=== PATIENT | female | born 1970 | race African-American/Black ===

== ENCOUNTER 2019-06-16 13:15 | Inpatient (IN) | payer MEDICARE, MEDICAID ==
[~2019-06-16] VITALS: Ht 162.6 cm; Wt 73.5 kg
[~2019-06-16 13:15] MED LIST: ALPR2TAB2 PO; AMLO5TAB4 PO; DOCU250C69 PO; INSLAN SQ; LOSA50TA41 PO; Metoprolol Tartrate PO; SUCR1ORA PO
[2019-06-16] MEDS ORDERED: SODIUM CHLORIDE 0.9% 1,000 ML IV ONE (13:39)
[2019-06-16] MEDS ORDERED: ONDANSETRON HCL 4MG/2ML INJ IV STA (13:39)
[2019-06-16] MEDS ORDERED: MORPHINE SULFATE 4 MG/ML CPJ (NOT FOR IM USE) IV STA (13:39)
[2019-06-16] MEDS ORDERED: HALOPERIDOL LACTATE 5MG/ML VIAL IM ONE (13:45)
[2019-06-16 14:47] LABS: BASOPHILS % 0.9 % (0.0-2.0); LYMPHOCYTES % 12.3 % (20.0-50.0); MEAN CORPUSCULAR HEMOGLOBIN 19.1 pg (28.0-32.0); MEAN CORPUSCULAR VOLUME 62.8 fL (81.0-99.0); MEAN PLATELET VOLUME 8.9 fl (7.4-10.4); NEUTROPHILS % 81.8 % (40.0-76.0); PLATELET 334 x1000/uL (130-400)
[2019-06-16 14:51] LABS: HEMOGLOBIN. 6.7 g/dL (12.0-16.0)
[2019-06-16 14:52] LABS: CHLORIDE 108 mEq/L (98-107)
[2019-06-16 14:53] LABS: PROTHROMBIN TIME 9.8 sec (9.6-11.0)
[2019-06-16 15:03] LABS: ETHANOL BLOOD < 10 mg/dL
[2019-06-16 15:10] LABS: HCG SCREEN NEGATIVE
[2019-06-16 15:14] LABS: PLATELET ESTIMATE NORMAL
[2019-06-16] MEDS ORDERED: METOCLOPRAMIDE HCL 10MG/2ML VIAL ONE (16:01)
[2019-06-16 16:16] LABS: CLARITY URINE CLEAR (CLEAR); COLOR URINE YELLOW (YELLOW); KETONES URINE NEGATIVE (NEGATIVE); LEUKOCYTE ESTERASE URINE NEGATIVE (NEGATIVE); NITRITE URINE NEGATIVE (NEGATIVE); OCCULT BLOOD URINE TRACE (NEGATIVE); PROTEIN URINE 3+ (NEGATIVE); SPECIFIC GRAVITY URINE 1.012 (1.005-1.030); UROBILINOGEN URINE 0.2 E.U./dL (0.2-1.0)
[2019-06-16] MEDS ORDERED: GUAIFENESIN 200MG/10ML SUGAR FREE UDC PO PRN (17:15)
[2019-06-16] MEDS ORDERED: DIPHENHYDRAMINE 50MG/ML VIAL IV PRN (17:15)
[2019-06-16] MEDS ORDERED: ONDANSETRON HCL 4MG/2ML INJ IV PRN (17:15)
[2019-06-16] MEDS ORDERED: DOCUSATE SODIUM 100MG CAPSULE PO PRN (17:15)
[2019-06-16] MEDS ORDERED: IPRATROPIUM/ALBUTEROL 0.5-3(2.5)MG/3ML NEB INH PRN (17:15)
[2019-06-16] MEDS ORDERED: ACETAMINOPHEN 325MG TABLET PO PRN (17:15)
[2019-06-16] MEDS ORDERED: MORPHINE SULFATE 4 MG/ML CPJ (NOT FOR IM USE) IV ONE (17:30)
[2019-06-16] MEDS ORDERED: ONDANSETRON HCL 4MG/2ML INJ IV ONE (17:30)
[2019-06-16 17:45] LABS: PHOSPHORUS 2.7 mg/dL (2.5-4.9)
[2019-06-16] MEDS ORDERED: IOHEXOL-300 100 ML BOTTLE ONE (19:08)
[2019-06-16] MEDS ORDERED: HYDRALAZINE 20MG/ML VIAL IV PRN (21:15)
[2019-06-16] MEDS ORDERED: HYDRALAZINE 10 MG in SODIUM CHLORIDE 0.9% 49.5 ML IV PRN (21:30)
[2019-06-16 22:15] VITALS: BP 177/93
[2019-06-16] MEDS: MORPHINE SULFATE 2 MG/ML CPJ (NOT FOR IM USE) IV PRN (22:35)
[2019-06-16] MEDS: SODIUM CHLORIDE 0.9% 1,000 ML IV SCH (22:39)
[2019-06-17] VITALS (7 sets, daily range): BP systolic 146–181; BP diastolic 76–100
[2019-06-17 00:19] LABS: CREATINE KINASE MB FRACTION 1.3 ng/mL (0.5-3.6)
[2019-06-17 04:30] LABS: BASOPHILS % 0.4 % (0.0-2.0); EOSINOPHILS % 0.3 % (0.0-5.0); HEMATOCRIT. 22.8 % (36.0-48.0); HEMOGLOBIN. 7.2 g/dL (12.0-16.0); MEAN CORPUSCULAR HEMOGLOBIN 20.2 pg (28.0-32.0); MEAN CORPUSCULAR VOLUME 64.3 fL (81.0-99.0); MEAN PLATELET VOLUME 8.5 fl (7.4-10.4); MONOCYTES % 6.4 % (2.0-8.0); NEUTROPHILS % 81.9 % (40.0-76.0); PLATELET 289 x1000/uL (130-400); RED BLOOD CELL COUNT 3.55 mill/uL (4.2-5.4)
[2019-06-17 04:43] LABS: CHLORIDE 110 mEq/L (98-107)
[2019-06-17] MEDS: MORPHINE SULFATE 2 MG/ML CPJ (NOT FOR IM USE) IV PRN ×3 (04:49→17:22)
[2019-06-17 04:50] LABS: LDL CHOLESTEROL 83 mg/dL (5-100)
[2019-06-17 04:52] LABS: CREATINE KINASE 82 IU/L (26-192); HDL CHOLESTEROL 40 mg/dL (40-59)
[2019-06-17 04:54] LABS: CREATINE KINASE MB FRACTION < 1.0 ng/mL (0.5-3.6)
[2019-06-17] MEDS: BLOOD SUGAR DIAGNOSTIC STRIP TEST SCH ×3 (06:21→17:48)
[2019-06-17] MEDS: SUCRALFATE 1 G/10 ML UDC PO SCH ×3 (06:29→18:18)
[2019-06-17] MEDS: METOPROLOL TARTRATE 25MG TABLET PO SCH ×2 (06:29→16:05)
[2019-06-17] MEDS: DEXTROSE 50% WATER 50ML SYRINGE IV PRN ×2 (06:35→12:10)
[2019-06-17] MEDS ORDERED: SUCRALFATE 1 GM PO SCH (07:20)
[2019-06-17] MEDS: INSULIN LISPRO 100 UNITS/ML SUBCUT SCH ×3 (07:37→18:25)
[2019-06-17] MEDS ORDERED: MEDICATION NOT ON FORMULARY EA (Docusate Sodium 250 MG) PO SCH (09:00)
[2019-06-17] MEDS ORDERED: LOSARTAN POTASSIUM 50 MG TABLET PO SCH (09:00)
[2019-06-17] MEDS ORDERED: INSULIN GLARGINE UD 100 UNITS/ML SYR SUBCUT SCH (09:00)
[2019-06-17] MEDS ORDERED: MEDICATION NOT ON FORMULARY EA (Amlodipine Besylate (Norvasc) 5 MG) PO SCH (09:00)
[2019-06-17] MEDS ORDERED: MEDICATION NOT ON FORMULARY EA (Alprazolam (Xanax) 2 MG) PO SCH (09:00)
[2019-06-17] MEDS ORDERED: AMLODIPINE 5MG TABLET PO SCH (09:00)
[2019-06-17] MEDS ORDERED: INSULIN GLARGINE HUM REC ANLOG U SQ SCH (09:00)
[2019-06-17] MEDS ORDERED: MEDICATION NOT ON FORMULARY EA (Losartan Potassium 1 TAB) PO SCH (09:00)
[2019-06-17] MEDS ORDERED: DOCUSATE SODIUM 250MG CAPSULE PO SCH (09:00)
[2019-06-17] MEDS ORDERED: METOPROLOL TARTRATE 25 MG PO SCH (09:00)
[2019-06-17] MEDS: ALPRAZOLAM 0.5 MG TABLET PO SCH ×2 (09:12→17:21)
[2019-06-17] MEDS ORDERED: OMEPRAZOLE 20MG CAPSULE EXTENDED RELEASE PO SCH ×2 (09:30→10:00)
[2019-06-17] MEDS ORDERED: LORAZEPAM 2MG/ML CPJ IV NR (09:45)
[2019-06-17] MEDS ORDERED: POTASSIUM CHLORIDE 20MEQ TABLET SR PO NR (09:45)
[2019-06-17] MEDS: METOCLOPRAMIDE HCL 10MG/2ML VIAL IV SCH ×2 (10:03→16:05)
[2019-06-17] MEDS ORDERED: METOCLOPRAMIDE HCL 10MG/2ML VIAL IV SCH ×2 (10:45→12:00)
[2019-06-17] MEDS: SODIUM CHLORIDE 0.9% 1,000 ML IV SCH (11:38)
[2019-06-17] MEDS ORDERED: ONDANSETRON HCL 4MG/2ML INJ IV SCH (15:00)
== END 2019-06-17 20:36 | disposition home or self-care (01) | DRG 74 ==
LOC: ER 13:15 → EDBEDREQTM 17:13 → EDBEDREQ 17:13 → ENRESERV 17:54 → 6EST 19:50
PROVIDERS: ADMIT Internal Medicine; ATTEND Internal Medicine
PROC: 30233N1 Transfusion of Nonautologous Red Blood Cells into Peripheral Vein, Percutaneous Approach (ICD-10-PCS; principal; 2019-06-16)
DX: E11.43 Type 2 diabetes mellitus with diabetic autonomic (poly)neuropathy (principal); K92.2 Gastrointestinal hemorrhage, unspecified; Z88.9 Allergy status to unspecified drugs, medicaments and biological substances; K29.70 Gastritis, unspecified, without bleeding; K25.9 Gastric ulcer, unspecified as acute or chronic, without hemorrhage or perforation; F41.9 Anxiety disorder, unspecified; D50.0 Iron deficiency anemia secondary to blood loss (chronic); N18.2 Chronic kidney disease, stage 2 (mild); E11.22 Type 2 diabetes mellitus with diabetic chronic kidney disease; D25.9 Leiomyoma of uterus, unspecified; I12.9 Hypertensive chronic kidney disease with stage 1 through stage 4 chronic kidney disease, or unspecified chronic kidney disease; E87.6 Hypokalemia; K31.84 Gastroparesis; Z90.49 Acquired absence of other specified parts of digestive tract; Z82.49 Family history of ischemic heart disease and other diseases of the circulatory system; Z83.3 Family history of diabetes mellitus; Z79.4 Long term (current) use of insulin
CPT/HCPCS: 36415; 74177; 80061; 80320; 81003; 82550; 82553; 82962; 83735; 84100; 84443; 84484; 84703; 86850; 86900; 86920; 93005; 93970; 96361; 96372; 96374; 96375; 99285; J0360; J1630; J1815; J2060; J2270; J2405; J2765; J7030; P9021; Q9967; G0480

== ENCOUNTER 2019-08-06 01:22 | Inpatient (IN) | payer MEDICARE, MEDICAID ==
[~2019-08-06] VITALS: Ht 162.6 cm; Wt 33.8 kg
[2019-08-06] MEDS ORDERED: METOCLOPRAMIDE HCL 10MG/2ML VIAL IV STA (02:34)
[2019-08-06] MEDS ORDERED: FAMOTIDINE 20MG/2ML VIAL IV STA (02:34)
[2019-08-06] MEDS ORDERED: MORPHINE SULFATE 4 MG/ML CPJ (NOT FOR IM USE) IV STA (02:34)
[2019-08-06] MEDS ORDERED: SODIUM CHLORIDE 0.9% 1,000 ML IV ONE ×2 (02:34)
[2019-08-06 02:52] LABS: BASOPHILS % 0.7 % (0.0-2.0); CHLORIDE 106 mEq/L (98-107); EOSINOPHILS % 2.4 % (0.0-5.0); LYMPHOCYTES % 14.8 % (20.0-50.0); MEAN CORPUSCULAR HEMOGLOBIN 19.5 pg (28.0-32.0); MEAN CORPUSCULAR VOLUME 63.5 fL (81.0-99.0); MEAN PLATELET VOLUME 9.5 fl (7.4-10.4); NEUTROPHILS % 75.1 % (40.0-76.0); PLATELET 360 x1000/uL (130-400); RED CELL DISTRIBUTION WIDTH 19.3 % (11.6-14.6)
[2019-08-06 02:56] LABS: ETHANOL BLOOD < 10 mg/dL; HEMATOCRIT. 19.7 % (36.0-48.0)
[2019-08-06 02:57] LABS: PLATELET ESTIMATE NORMAL
[2019-08-06 03:01] LABS: BETA HYDROXYBUTYRATE 0.1 mMol/L (0.0-0.3)
[2019-08-06] MEDS ORDERED: MORPHINE SULFATE 4 MG/ML CPJ (NOT FOR IM USE) IV ONE (05:00)
[2019-08-06] MEDS: CLONIDINE 0.1MG TABLET PO SCH (06:34)
[2019-08-06] MEDS ORDERED: MORPHINE SULFATE 2 MG/ML CPJ (NOT FOR IM USE) IV SCH (08:30)
[2019-08-06] MEDS ORDERED: HYDRALAZINE 20MG/ML VIAL IV NR (08:30)
[2019-08-06] MEDS ORDERED: DEXTROSE 50% WATER 50ML SYRINGE IV PRN (08:45)
[2019-08-06] MEDS ORDERED: ONDANSETRON HCL 4MG/2ML INJ IV NR (08:45)
[2019-08-06 08:50] VITALS: BP 158/69
[2019-08-06] MEDS: BLOOD SUGAR DIAGNOSTIC STRIP TEST SCH ×4 (08:58→20:48)
[2019-08-06] MEDS ORDERED: PANTOPRAZOLE SODIUM 40 MG/VIAL IV SCH (09:00)
[2019-08-06] MEDS: INSULIN GLARGINE UD 100 UNITS/ML SYR SUBCUT SCH ×2 (10:00→21:00)
[2019-08-06] MEDS: LOSARTAN POTASSIUM 50 MG TABLET PO SCH (10:04)
[2019-08-06] MEDS: AMLODIPINE 10MG TABLET PO SCH (10:04)
[2019-08-06] MEDS: MORPHINE SULFATE 2 MG/ML CPJ (NOT FOR IM USE) IV PRN ×3 (10:05→20:57)
[2019-08-06] MEDS: INSULIN LISPRO 100 UNITS/ML SUBCUT SCH ×4 (10:23→21:56)
[2019-08-06 11:55] VITALS: BP 141/98
[2019-08-06] MEDS: ONDANSETRON HCL 4MG/2ML INJ IV PRN ×2 (14:43→20:56)
[2019-08-06] MEDS: SODIUM CHLORIDE 0.9% 1,000 ML IV SCH (14:50)
[2019-08-06 16:13] VITALS: BP 175/96
[2019-08-06] MEDS ORDERED: OMEP20TA2 MT (17:14)
[2019-08-06] MEDS ORDERED: CLON0.2T MT (17:14)
[2019-08-06] MEDS ORDERED: MEDR10TA11 MT (17:15)
[2019-08-06] MEDS ORDERED: NA PHOS,M-B/NA PHOS,DI-BA ENEMA 118ML PR NR (18:00)
[2019-08-06 20:00] VITALS: BP 148/88
[2019-08-06] MEDS: PANTOPRAZOLE SODIUM 40 MG/VIAL IV SCH (20:24)
[2019-08-06] MEDS: BISACODYL 10MG SUPP PR SCH (21:56)
[2019-08-06 22:02] LABS: HEMATOCRIT 23.9 % (36.0-48.0); HEMOGLOBIN 7.5 g/dL (12.0-16.0); MEAN CORPUSCULAR HEMOGLOBIN 20.8 pg (28.0-32.0); MEAN CORPUSCULAR VOLUME 66.4 fL (81.0-99.0); PLATELET 364 x1000/uL (130-400); RED CELL DISTRIBUTION WIDTH 22.6 % (11.6-14.6)
[2019-08-07] VITALS (25 sets, daily range): BP systolic 115–210; BP diastolic 56–105
[2019-08-07] MEDS: MORPHINE SULFATE 2 MG/ML CPJ (NOT FOR IM USE) IV PRN ×6 (03:00→23:14)
[2019-08-07] MEDS: ONDANSETRON HCL 4MG/2ML INJ IV PRN ×3 (03:09→17:10)
[2019-08-07] MEDS: HYDRALAZINE 20MG/ML VIAL IV PRN ×2 (03:19→12:19)
[2019-08-07] MEDS: CLONIDINE 0.1MG TABLET PO SCH (05:18)
[2019-08-07] MEDS: BLOOD SUGAR DIAGNOSTIC STRIP TEST SCH ×3 (05:50→21:54)
[2019-08-07] MEDS: SODIUM CHLORIDE 0.9% 1,000 ML IV SCH ×2 (05:51→12:18)
[2019-08-07] MEDS: INSULIN LISPRO 100 UNITS/ML SUBCUT SCH ×4 (05:56→21:52)
[2019-08-07 07:18] LABS: HEMATOCRIT. 24.3 % (36.0-48.0); HEMOGLOBIN. 7.6 g/dL (12.0-16.0); MEAN CORPUSCULAR HEMOGLOBIN 20.8 pg (28.0-32.0); MEAN PLATELET VOLUME 9.3 fl (7.4-10.4); PLATELET 386 x1000/uL (130-400); RED BLOOD CELL COUNT 3.63 mill/uL (4.2-5.4); RED CELL DISTRIBUTION WIDTH 22.7 % (11.6-14.6)
[2019-08-07] MEDS: PANTOPRAZOLE SODIUM 40 MG/VIAL IV SCH ×2 (08:25→17:42)
[2019-08-07] MEDS: AMLODIPINE 10MG TABLET PO SCH (08:34)
[2019-08-07] MEDS: LOSARTAN POTASSIUM 50 MG TABLET PO SCH (08:34)
[2019-08-07 10:12] LABS: PLATELET ESTIMATE NORMAL
[2019-08-07] MEDS: LABETALOL 5MG/ML SYR 20 MG/4 ML SYRINGE IV ONE ×2 (10:55→11:07)
[2019-08-07] MEDS ORDERED: MORPHINE SULFATE 4 MG/ML CPJ (NOT FOR IM USE) IV NR (12:30)
[2019-08-07] MEDS: INSULIN GLARGINE UD 100 UNITS/ML SYR SUBCUT SCH ×2 (13:49→21:50)
[2019-08-07] MEDS ORDERED: NICARDIPINE 50 MG in SODIUM CHLORIDE 0.9% 230 ML IV PRN (17:00)
[2019-08-07] MEDS ORDERED: ENALAPRIL 2.5MG/2ML VIAL 2ML IV SCH (18:00)
[2019-08-07] MEDS: BISACODYL 10MG SUPP PR SCH (21:48)
[2019-08-08] VITALS (17 sets, daily range): BP systolic 105–190; BP diastolic 52–99
[2019-08-08] MEDS: SODIUM CHLORIDE 0.9% 1,000 ML IV SCH ×3 (00:45→22:18)
[2019-08-08 04:57] LABS: BASOPHILS % 0.2 % (0.0-2.0); EOSINOPHILS % 0.1 % (0.0-5.0); HEMATOCRIT. 23.5 % (36.0-48.0); HEMOGLOBIN. 7.3 g/dL (12.0-16.0); LYMPHOCYTES % 9.4 % (20.0-50.0); MEAN CORPUSCULAR VOLUME 67.1 fL (81.0-99.0); MONOCYTES % 6.3 % (2.0-8.0); PLATELET 379 x1000/uL (130-400); RED BLOOD CELL COUNT 3.49 mill/uL (4.2-5.4); RED CELL DISTRIBUTION WIDTH 23.2 % (11.6-14.6)
[2019-08-08] MEDS: BLOOD SUGAR DIAGNOSTIC STRIP TEST SCH ×4 (06:50→21:28)
[2019-08-08] MEDS: HYDRALAZINE 20MG/ML VIAL IV PRN ×3 (06:58→21:47)
[2019-08-08] MEDS: INSULIN LISPRO 100 UNITS/ML SUBCUT SCH ×4 (07:00→21:44)
[2019-08-08] MEDS: ONDANSETRON HCL 4MG/2ML INJ IV PRN ×2 (07:00→21:45)
[2019-08-08] MEDS: PANTOPRAZOLE SODIUM 40 MG/VIAL IV SCH ×2 (08:00→16:43)
[2019-08-08] MEDS: LOSARTAN POTASSIUM 50 MG TABLET PO SCH (08:00)
[2019-08-08] MEDS: MORPHINE SULFATE 2 MG/ML CPJ (NOT FOR IM USE) IV PRN ×2 (08:00→12:10)
[2019-08-08] MEDS: POTASSIUM CHLORIDE 20MEQ TABLET SR PO NR (08:00)
[2019-08-08] MEDS: INSULIN GLARGINE UD 100 UNITS/ML SYR SUBCUT SCH ×3 (11:00→22:00)
[2019-08-08] MEDS: METOCLOPRAMIDE HCL 10MG/2ML VIAL IV SCH ×2 (17:33→21:45)
[2019-08-08] MEDS: HYDRALAZINE HCL 100MG TABLET PO SCH (21:46)
[2019-08-08] MEDS: BISACODYL 10MG SUPP PR SCH (21:46)
[2019-08-08] MEDS: HYDROMORPHONE HCL/PF 2MG/ML CPJ IV PRN (21:49)
[2019-08-09] VITALS (13 sets, daily range): BP systolic 129–200; BP diastolic 71–105
[2019-08-09 00:17] LABS: HCG SCREEN NEGATIVE
[2019-08-09] MEDS: HYDROMORPHONE HCL/PF 2MG/ML CPJ IV PRN ×5 (00:19→22:06)
[2019-08-09 05:12] LABS: HEMOGLOBIN. 8.4 g/dL (12.0-16.0); MEAN CORPUSCULAR HEMOGLOBIN 21.8 pg (28.0-32.0); MEAN CORPUSCULAR VOLUME 69.9 fL (81.0-99.0); MEAN PLATELET VOLUME 8.5 fl (7.4-10.4); PLATELET 429 x1000/uL (130-400); RED BLOOD CELL COUNT 3.87 mill/uL (4.2-5.4); RED CELL DISTRIBUTION WIDTH 24.8 % (11.6-14.6)
[2019-08-09] MEDS: ONDANSETRON HCL 4MG/2ML INJ IV PRN ×2 (06:19→15:03)
[2019-08-09] MEDS: METOCLOPRAMIDE HCL 10MG/2ML VIAL IV SCH (06:19)
[2019-08-09] MEDS: HYDRALAZINE HCL 100MG TABLET PO SCH ×3 (06:21→22:07)
[2019-08-09] MEDS: SODIUM CHLORIDE 0.9% 1,000 ML IV SCH ×2 (06:21→13:03)
[2019-08-09] MEDS: BLOOD SUGAR DIAGNOSTIC STRIP TEST SCH ×4 (06:22→20:54)
[2019-08-09] MEDS: INSULIN LISPRO 100 UNITS/ML SUBCUT SCH ×3 (06:23→20:58)
[2019-08-09] MEDS: PANTOPRAZOLE SODIUM 40 MG/VIAL IV SCH ×2 (08:31→17:05)
[2019-08-09] MEDS: INSULIN GLARGINE UD 100 UNITS/ML SYR SUBCUT SCH (08:36)
[2019-08-09 10:04] LABS: PLATELET ESTIMATE INCREASED
[2019-08-09] MEDS ORDERED: PROPOFOL 200MG/20ML VIAL IV ONE (14:22)
[2019-08-09] MEDS ORDERED: LIDOCAINE HCL/PF 1% 10 MG/ML 5ML VIAL ONE (14:22)
[2019-08-09] MEDS ORDERED: SUCCINYLCHOLINE CHLORIDE 200MG/10ML IV ONE (14:22)
[2019-08-09] MEDS ORDERED: LIDOCAINE HCL 1% 20ML VIAL (Pyxis) INJ ONE (15:10)
[2019-08-09] MEDS ORDERED: FLUCONAZOLE 100MG TABLET PO NR (15:30)
[2019-08-09] MEDS: CEFTRIAXONE 1 G PREMIX 50 ML IV SCH (17:05)
[2019-08-09] MEDS: METOCLOPRAMIDE HCL 10MG TABLET PO SCH ×2 (17:06→22:07)
[2019-08-09 17:07] LABS: TOTAL IRON BINDING CAPACITY 310 ug/dL (250-450)
[2019-08-09] MEDS: BISACODYL 10MG SUPP PR SCH (22:07)
[2019-08-10] VITALS: BP 155/72
[2019-08-10] MEDS: SODIUM CHLORIDE 0.9% 1,000 ML IV SCH ×2 (01:52→21:43)
[2019-08-10] MEDS: INSULIN GLARGINE UD 100 UNITS/ML SYR SUBCUT SCH ×3 (01:57→21:44)
[2019-08-10] MEDS: ONDANSETRON HCL 4MG/2ML INJ IV PRN (03:43)
[2019-08-10 04:00] VITALS: BP 171/89
[2019-08-10] MEDS: HYDROMORPHONE HCL/PF 2MG/ML CPJ IV PRN ×3 (04:26→17:43)
[2019-08-10] MEDS: METOCLOPRAMIDE HCL 10MG TABLET PO SCH ×2 (05:29→11:59)
[2019-08-10] MEDS: HYDRALAZINE HCL 100MG TABLET PO SCH ×3 (05:30→21:42)
[2019-08-10 06:48] LABS: BASOPHILS % 0.1 % (0.0-2.0); EOSINOPHILS % 0.2 % (0.0-5.0); HEMATOCRIT. 24.3 % (36.0-48.0); HEMOGLOBIN. 7.7 g/dL (12.0-16.0); LYMPHOCYTES % 7.9 % (20.0-50.0); MEAN CORPUSCULAR VOLUME 69.9 fL (81.0-99.0); MEAN PLATELET VOLUME 8.6 fl (7.4-10.4); MONOCYTES % 5.4 % (2.0-8.0); NEUTROPHILS % 86.4 % (40.0-76.0); PLATELET 359 x1000/uL (130-400); RED BLOOD CELL COUNT 3.48 mill/uL (4.2-5.4)
[2019-08-10] MEDS: BLOOD SUGAR DIAGNOSTIC STRIP TEST SCH ×4 (07:29→21:21)
[2019-08-10] MEDS: INSULIN LISPRO 100 UNITS/ML SUBCUT SCH ×4 (07:29→21:00)
[2019-08-10 08:00] VITALS: BP 165/8
[2019-08-10] MEDS: FLUCONAZOLE 100MG TABLET PO SCH (08:54)
[2019-08-10] MEDS: PANTOPRAZOLE SODIUM 40 MG/VIAL IV SCH ×2 (08:54→17:41)
[2019-08-10] MEDS: HYDRALAZINE 20MG/ML VIAL IV PRN (11:00)
[2019-08-10 11:54] VITALS: BP 170/76
[2019-08-10] MEDS: ACETAMINOPHEN 325MG TABLET PO PRN ×2 (14:13→20:54)
[2019-08-10] MEDS: CEFTRIAXONE 1 G PREMIX 50 ML IV SCH (14:13)
[2019-08-10 16:00] VITALS: BP 169/85
[2019-08-10] MEDS: METOCLOPRAMIDE HCL 10MG/2ML VIAL IV SCH (17:43)
[2019-08-10 20:00] VITALS: BP 158/71
[2019-08-10] MEDS: PROCHLORPERAZINE 10MG/2ML VIAL IV PRN (20:54)
[2019-08-10] MEDS: AMLODIPINE 5MG TABLET PO SCH (21:39)
[2019-08-10] MEDS: BISACODYL 10MG SUPP PR SCH (21:40)
[2019-08-11] VITALS (8 sets, daily range): BP systolic 138–172; BP diastolic 71–89
[2019-08-11] MEDS: METOCLOPRAMIDE HCL 10MG/2ML VIAL IV SCH ×5 (00:28→23:12)
[2019-08-11] MEDS: HYDROMORPHONE HCL/PF 2MG/ML CPJ IV PRN ×4 (00:29→21:02)
[2019-08-11] MEDS: HYDRALAZINE HCL 100MG TABLET PO SCH ×3 (05:38→21:07)
[2019-08-11] MEDS: SODIUM CHLORIDE 0.9% 1,000 ML IV SCH ×3 (05:38→21:23)
[2019-08-11] MEDS: INSULIN LISPRO 100 UNITS/ML SUBCUT SCH ×4 (07:40→21:30)
[2019-08-11 07:57] LABS: BASOPHILS % 0.3 % (0.0-2.0); EOSINOPHILS % 0.7 % (0.0-5.0); HEMATOCRIT. 21.2 % (36.0-48.0); HEMOGLOBIN. 6.9 g/dL (12.0-16.0); LYMPHOCYTES % 10.3 % (20.0-50.0); MEAN CORPUSCULAR HEMOGLOBIN 22.7 pg (28.0-32.0); MEAN CORPUSCULAR VOLUME 69.1 fL (81.0-99.0); MEAN PLATELET VOLUME 8.5 fl (7.4-10.4); MONOCYTES % 5.6 % (2.0-8.0); NEUTROPHILS % 83.1 % (40.0-76.0); PLATELET 325 x1000/uL (130-400); RED BLOOD CELL COUNT 3.06 mill/uL (4.2-5.4); RED CELL DISTRIBUTION WIDTH 25.1 % (11.6-14.6)
[2019-08-11] MEDS: PANTOPRAZOLE SODIUM 40 MG/VIAL IV SCH ×2 (09:12→18:38)
[2019-08-11] MEDS: FLUCONAZOLE 100MG TABLET PO SCH (09:12)
[2019-08-11] MEDS: AMLODIPINE 5MG TABLET PO SCH ×2 (09:12→21:06)
[2019-08-11] MEDS: PROCHLORPERAZINE 10MG/2ML VIAL IV PRN (09:13)
[2019-08-11 10:06] LABS: SACCHAROMYCES CEREVISIAE IGM <20.0 Units (0.0-24.9)
[2019-08-11] MEDS: INSULIN GLARGINE UD 100 UNITS/ML SYR SUBCUT SCH ×2 (11:31→21:30)
[2019-08-11] MEDS: BLOOD SUGAR DIAGNOSTIC STRIP TEST SCH ×3 (12:10→21:16)
[2019-08-11] MEDS: CEFTRIAXONE 1 G PREMIX 50 ML IV SCH (13:15)
[2019-08-11 15:11] LABS: ATYPICAL pANCA <1:20 titer (Neg:<1:20)
[2019-08-11] MEDS ORDERED: POTASSIUM CHLORIDE 20MEQ TABLET SR PO NR (19:00)
[2019-08-11] MEDS: BISACODYL 10MG SUPP PR SCH (21:07)
[2019-08-12] VITALS (12 sets, daily range): BP systolic 140–172; BP diastolic 75–93
[2019-08-12] MEDS: HYDROMORPHONE HCL/PF 2MG/ML CPJ IV PRN ×2 (03:22→10:23)
[2019-08-12] MEDS ORDERED: NON FORMULARY PATIENT HOME MED XX SCH (05:30)
[2019-08-12] MEDS: HYDRALAZINE HCL 100MG TABLET PO SCH ×2 (06:03→13:43)
[2019-08-12] MEDS: SODIUM CHLORIDE 0.9% 1,000 ML IV SCH ×2 (06:03→13:43)
[2019-08-12] MEDS: METOCLOPRAMIDE HCL 10MG/2ML VIAL IV SCH ×2 (06:03→13:42)
[2019-08-12] MEDS: BLOOD SUGAR DIAGNOSTIC STRIP TEST SCH ×2 (06:04→12:52)
[2019-08-12] MEDS: INSULIN LISPRO 100 UNITS/ML SUBCUT SCH ×2 (07:27→12:40)
[2019-08-12] MEDS ORDERED: IRON SUCROSE COMPLEX 100 MG/5 ML ML IV SCH (09:00)
[2019-08-12 09:07] LABS: SACCHAROMYCES CEREVISIAE IGG <20.0 Units (0.0-24.9)
[2019-08-12 09:20] LABS: BASOPHILS % 0.4 % (0.0-2.0); EOSINOPHILS % 1.1 % (0.0-5.0); HEMATOCRIT. 28.5 % (36.0-48.0); HEMOGLOBIN. 9.4 g/dL (12.0-16.0); MEAN CORPUSCULAR HEMOGLOBIN 24.5 pg (28.0-32.0); MEAN CORPUSCULAR VOLUME 74.3 fL (81.0-99.0); MEAN PLATELET VOLUME 8.7 fl (7.4-10.4); MONOCYTES % 7.6 % (2.0-8.0); NEUTROPHILS % 78.9 % (40.0-76.0); PLATELET 291 x1000/uL (130-400); RED BLOOD CELL COUNT 3.83 mill/uL (4.2-5.4); RED CELL DISTRIBUTION WIDTH 25.4 % (11.6-14.6)
[2019-08-12] MEDS: PANTOPRAZOLE SODIUM 40 MG/VIAL IV SCH (10:28)
[2019-08-12] MEDS: AMLODIPINE 5MG TABLET PO SCH (10:28)
[2019-08-12] MEDS: FLUCONAZOLE 100MG TABLET PO SCH (10:28)
[2019-08-12] MEDS: INSULIN GLARGINE UD 100 UNITS/ML SYR SUBCUT SCH (10:30)
[2019-08-12] MEDS: CEFTRIAXONE 1 G PREMIX 50 ML IV SCH (13:43)
== END 2019-08-12 15:17 | disposition home or self-care (01) | DRG 73 ==
LOC: ER 01:22 → EDBEDREQ 05:18 → 8WST 05:41 → EDBEDREQ 05:46 → EDBEDREQTM 05:46 → ENRESERV 07:08 → MICUSO 08-07 15:47 → 8WST 08-09 16:06
PROVIDERS: ADMIT Internal Medicine; ATTEND Internal Medicine
PROC: 30233N1 Transfusion of Nonautologous Red Blood Cells into Peripheral Vein, Percutaneous Approach (ICD-10-PCS; 2019-08-06)
PROC: 0DB98ZX Excision of Duodenum, Via Natural or Artificial Opening Endoscopic, Diagnostic (ICD-10-PCS; principal; 2019-08-09)
PROC: 0DB78ZX Excision of Stomach, Pylorus, Via Natural or Artificial Opening Endoscopic, Diagnostic (ICD-10-PCS; 2019-08-09)
PROC: 0DB38ZX Excision of Lower Esophagus, Via Natural or Artificial Opening Endoscopic, Diagnostic (ICD-10-PCS; 2019-08-09)
DX: E11.43 Type 2 diabetes mellitus with diabetic autonomic (poly)neuropathy (principal); N17.0 Acute kidney failure with tubular necrosis; E44.0 Moderate protein-calorie malnutrition; Z68.1 Body mass index [BMI] 19.9 or less, adult; K21.9 Gastro-esophageal reflux disease without esophagitis; D50.9 Iron deficiency anemia, unspecified; I10 Essential (primary) hypertension; D25.9 Leiomyoma of uterus, unspecified; K31.84 Gastroparesis; E87.6 Hypokalemia; F41.9 Anxiety disorder, unspecified; N32.89 Other specified disorders of bladder; R13.10 Dysphagia, unspecified; N20.0 Calculus of kidney; Z90.49 Acquired absence of other specified parts of digestive tract; Z87.19 Personal history of other diseases of the digestive system; Z88.8 Allergy status to other drugs, medicaments and biological substances; Z79.4 Long term (current) use of insulin; Z79.899 Other long term (current) drug therapy
CPT/HCPCS: 36415; 71045; 74018; 74176; 76830; 76856; 80048; 80320; 82010; 82247; 82248; 82728; 82962; 83540; 83550; 83605; 84132; 84145; 84484; 84703; 85027; 86256; 86671; 86850; 86900; 86920; 88305; 88312; 88313; 93005; 99285; C1893; C9113; J0330; J0360; J0696; J0780; J1170; J1815; J2270; J2405; J2704; J2765; J3490; J7030; J7040; J8597; P9016; P9021; G0480

== ENCOUNTER 2019-10-13 18:02 | Inpatient (IN) | payer MEDICARE, MEDICAID ==
[~2019-10-13] VITALS: Ht 167.6 cm; Wt 71.2 kg
[~2019-10-13 18:02] MED LIST changes: +CLON0.2T PO; -LOSA50TA41 PO; +MEDR10TA11 PO; +OMEP20TA2 PO
[2019-10-13] MEDS ORDERED: SODIUM CHLORIDE 0.9% 1,000 ML IV ONE (18:34)
[2019-10-13] MEDS ORDERED: ONDANSETRON HCL 4MG/2ML INJ IV STA (18:34)
[2019-10-13] MEDS ORDERED: MORPHINE SULFATE 4 MG/ML CPJ (NOT FOR IM USE) IV ONE (19:00)
[2019-10-13 19:06] LABS: BASOPHILS % 0.1 % (0.0-2.0); HEMATOCRIT. 31.8 % (36.0-48.0); HEMOGLOBIN. 10.6 g/dL (12.0-16.0); LYMPHOCYTES % 7.4 % (20.0-50.0); MEAN CORPUSCULAR HEMOGLOBIN 25.6 pg (28.0-32.0); MEAN CORPUSCULAR VOLUME 76.9 fL (81.0-99.0); MEAN PLATELET VOLUME 9.4 fl (7.4-10.4); MONOCYTES % 4.2 % (2.0-8.0); NEUTROPHILS % 88.3 % (40.0-76.0); PLATELET 202 x1000/uL (130-400); RED BLOOD CELL COUNT 4.13 mill/uL (4.2-5.4)
[2019-10-13 19:10] LABS: CHLORIDE 109 mEq/L (98-107)
[2019-10-13 19:11] LABS: PROTHROMBIN TIME 9.9 sec (9.6-11.0)
[2019-10-13] MEDS ORDERED: LORAZEPAM 2MG/ML CPJ IV ONE (20:00)
[2019-10-13 22:23] LABS: CLARITY URINE CLEAR (CLEAR); COLOR URINE YELLOW (YELLOW); KETONES URINE TRACE (NEGATIVE); LEUKOCYTE ESTERASE URINE NEGATIVE (NEGATIVE); NITRITE URINE NEGATIVE (NEGATIVE); OCCULT BLOOD URINE 1+ (NEGATIVE); PH URINE 6.5 (4.5-8.0); PROTEIN URINE 3+ (NEGATIVE); SPECIFIC GRAVITY URINE 1.015 (1.005-1.030); UROBILINOGEN URINE 0.2 E.U./dL (0.2-1.0)
[2019-10-13] MEDS ORDERED: INSULIN REGULAR (HUMULIN R) 300UNITS/3ML SUBCUT ONE (23:00)
[2019-10-13] MEDS ORDERED: CLONIDINE 0.2MG TABLET PO ONE (23:00)
[2019-10-13] MEDS ORDERED: AMLODIPINE 5MG TABLET PO ONE (23:00)
[2019-10-13] MEDS ORDERED: ONDANSETRON HCL 4MG/2ML INJ IV ONE (23:15)
[2019-10-14] MEDS ORDERED: DIPHENHYDRAMINE 50MG/ML VIAL IV PRN
[2019-10-14] MEDS ORDERED: MAGNESIUM/ALUMINUM HYDROXIDE/SIMETHICONE 30ML UDC PO PRN
[2019-10-14] MEDS ORDERED: DEXTROSE 50% WATER 50ML SYRINGE IV PRN
[2019-10-14] MEDS ORDERED: IPRATROPIUM/ALBUTEROL 0.5-3(2.5)MG/3ML NEB HHN PRN
[2019-10-14] MEDS ORDERED: GUAIFENESIN 200MG/10ML SUGAR FREE UDC PO PRN
[2019-10-14] MEDS ORDERED: ACETAMINOPHEN 325MG TABLET PO PRN
[2019-10-14] MEDS ORDERED: DOCUSATE SODIUM 100MG CAPSULE PO PRN
[2019-10-14] MEDS ORDERED: NA PHOS,M-B/NA PHOS,DI-BA ENEMA 118ML PR PRN
[2019-10-14] MEDS ORDERED: HYDROCODONE/ACETAMINOPHEN 10/325MG TABLET PO PRN
[2019-10-14] MEDS: CLONIDINE 0.1MG TABLET PO PRN (03:06)
[2019-10-14 03:57] VITALS: BP 169/116
[2019-10-14] MEDS: ONDANSETRON HCL 4MG/2ML INJ IV PRN ×2 (04:49→16:56)
[2019-10-14] MEDS: MORPHINE SULFATE 2 MG/ML CPJ (NOT FOR IM USE) IV PRN ×3 (04:49→21:11)
[2019-10-14] MEDS: HYDRALAZINE 20MG/ML VIAL IV PRN ×2 (04:50→16:56)
[2019-10-14] MEDS: SODIUM CHLORIDE 0.9% INJ 3ML FLUSH IVF SCH ×3 (05:30→22:00)
[2019-10-14] MEDS: METOPROLOL TARTRATE 25MG TABLET PO SCH ×2 (06:00→21:12)
[2019-10-14] MEDS: SODIUM CHLORIDE 0.45% 1,000 ML IV SCH ×2 (06:20→14:41)
[2019-10-14 08:00] VITALS: BP 189/104
[2019-10-14] MEDS: SUCRALFATE 1 G/10 ML UDC PO SCH ×4 (08:32→21:12)
[2019-10-14] MEDS: ENOXAPARIN 30MG/0.3ML SYR SUBCUT SCH (08:33)
[2019-10-14] MEDS: BLOOD SUGAR DIAGNOSTIC STRIP TEST SCH ×4 (08:33→21:12)
[2019-10-14] MEDS ORDERED: AMLODIPINE 5MG TABLET PO SCH (09:00)
[2019-10-14] MEDS: LORAZEPAM 2MG/ML CPJ IV PRN (09:15)
[2019-10-14 09:28] LABS: HEMATOCRIT. 33.7 % (36.0-48.0); HEMOGLOBIN. 11.2 g/dL (12.0-16.0); MEAN CORPUSCULAR HEMOGLOBIN 25.5 pg (28.0-32.0); MEAN CORPUSCULAR VOLUME 76.9 fL (81.0-99.0); PLATELET 225 x1000/uL (130-400); RED BLOOD CELL COUNT 4.38 mill/uL (4.2-5.4); RED CELL DISTRIBUTION WIDTH 17.9 % (11.6-14.6)
[2019-10-14 09:29] LABS: CHLORIDE 106 mEq/L (98-107)
[2019-10-14 09:43] LABS: LDL CHOLESTEROL 72 mg/dL (5-100)
[2019-10-14 09:44] LABS: CREATINE KINASE MB FRACTION 2.1 ng/mL (0.5-3.6); HDL CHOLESTEROL 44 mg/dL (40-59)
[2019-10-14 09:45] LABS: CREATINE KINASE 94 IU/L (26-192); T4 FREE 1.04 ng/dL (0.76-1.46)
[2019-10-14] MEDS: INSULIN GLARGINE UD 100 UNITS/ML SYR SUBCUT SCH (11:44)
[2019-10-14 12:00] VITALS: BP 172/98
[2019-10-14] MEDS: INSULIN LISPRO 100 UNITS/ML SUBCUT SCH ×4 (14:34→21:31)
[2019-10-14 15:22] LABS: PLATELET ESTIMATE NORMAL
[2019-10-14 16:00] VITALS: BP 165/96
[2019-10-14 16:04] LABS: BG BASE EXCESS -7.2 mmol/L (-2.0-2.0); BG CARBOXYHEMOGLOBIN 0.3 % (0.5-1.5); BG DEOXYHEMOGLOBIN 2.5 % (0.0-5.0); BG FRACTION INSPIRED OXYGEN 21; BG HCO3 ACT 17.4 mmol/L (22.0-26.0); BG METHEMOGLOBIN 0.2 % (0.0-1.5); BG OXYGEN SATURATION 97.5 % (92.0-98.5); BG PCO2 32.3 mmHg (35.0-45.0); BG PO2 107.3 mmHg (75.0-100.0); BG SAMPLE SITE RIGHT BRACHIAL; BG TOTAL HEMOGLOBIN 11.9 g/dL (12.0-18.0); BG VENT MODE ROOM AIR
[2019-10-14 17:27] LABS: CREATINE KINASE MB FRACTION 2.9 ng/mL (0.5-3.6)
[2019-10-14 20:00] VITALS: BP 153/79
[2019-10-14] MEDS: AMLODIPINE 5MG TABLET PO SCH (21:12)
[2019-10-15] VITALS: BP 153/80
[2019-10-15] MEDS: METOCLOPRAMIDE HCL 10MG/2ML VIAL IV PRN ×2 (00:38→12:08)
[2019-10-15] MEDS: LORAZEPAM 2MG/ML CPJ IV PRN (00:38)
[2019-10-15 04:00] VITALS: BP 170/81
[2019-10-15] MEDS: SODIUM CHLORIDE 0.9% 1,000 ML IV SCH ×2 (04:20→17:40)
[2019-10-15] MEDS: CLONIDINE 0.1MG TABLET PO PRN (05:44)
[2019-10-15] MEDS: SODIUM CHLORIDE 0.9% INJ 3ML FLUSH IVF SCH ×3 (05:52→21:51)
[2019-10-15] MEDS: BLOOD SUGAR DIAGNOSTIC STRIP TEST SCH ×4 (05:52→21:00)
[2019-10-15 08:00] VITALS: BP 181/100
[2019-10-15] MEDS: AMLODIPINE 5MG TABLET PO SCH ×2 (08:18→21:13)
[2019-10-15] MEDS: METOPROLOL TARTRATE 25MG TABLET PO SCH ×2 (08:18→21:13)
[2019-10-15] MEDS: ENOXAPARIN 30MG/0.3ML SYR SUBCUT SCH (08:18)
[2019-10-15] MEDS: SUCRALFATE 1 G/10 ML UDC PO SCH ×4 (08:18→21:12)
[2019-10-15] MEDS: INSULIN LISPRO 100 UNITS/ML SUBCUT SCH ×4 (08:19→21:00)
[2019-10-15 08:37] LABS: BASOPHILS % 0.1 % (0.0-2.0); HEMATOCRIT. 31.5 % (36.0-48.0); HEMOGLOBIN. 10.6 g/dL (12.0-16.0); LYMPHOCYTES % 8.3 % (20.0-50.0); MEAN CORPUSCULAR HEMOGLOBIN 25.9 pg (28.0-32.0); MEAN CORPUSCULAR VOLUME 77.4 fL (81.0-99.0); MEAN PLATELET VOLUME 9.7 fl (7.4-10.4); MONOCYTES % 8.4 % (2.0-8.0); NEUTROPHILS % 83.2 % (40.0-76.0); PLATELET 232 x1000/uL (130-400); RED BLOOD CELL COUNT 4.08 mill/uL (4.2-5.4); RED CELL DISTRIBUTION WIDTH 18.4 % (11.6-14.6)
[2019-10-15] MEDS: ONDANSETRON HCL 4MG/2ML INJ IV PRN ×2 (10:05→21:12)
[2019-10-15] MEDS: INSULIN GLARGINE UD 100 UNITS/ML SYR SUBCUT SCH (10:09)
[2019-10-15 10:34] LABS: PHOSPHORUS 3.5 mg/dL (2.5-4.9)
[2019-10-15 12:00] VITALS: BP 162/82
[2019-10-15] MEDS: CITRIC ACID/SODIUM CITRATE SOLN 15ML UDC PO SCH ×2 (12:15→17:15)
[2019-10-15] MEDS ORDERED: SIMETHICONE 80MG TABLET CHEW PO PRN (14:45)
[2019-10-15 15:52] LABS: *AMPHETAMINES SCREEN URINE NEGATIVE (NEGATIVE); *BARBITURATES SCREEN URINE NEGATIVE (NEGATIVE); *BENZODIAZEPINES SCREEN URINE NEGATIVE (NEGATIVE); *COCAINE SCREEN URINE NEGATIVE (NEGATIVE)
[2019-10-15 15:53] LABS: CANNABINOID URINE SCREEN NEGATIVE (NEGATIVE); METHADONE URINE SCREEN NEGATIVE (NEGATIVE); PHENCYCLIDINE URINE SCREEN NEGATIVE (NEGATIVE)
[2019-10-15 15:58] LABS: OPIATES URINE SCREEN PRESUMTIVE POSITIVE (NEGATIVE)
[2019-10-15] MEDS: MORPHINE SULFATE 2 MG/ML CPJ (NOT FOR IM USE) IV PRN ×2 (17:09→21:13)
[2019-10-15] MEDS: PANTOPRAZOLE SODIUM 40 MG/VIAL IV SCH (17:15)
[2019-10-15 20:00] VITALS: BP 179/89
[2019-10-16] VITALS (7 sets, daily range): BP systolic 138–161; BP diastolic 73–87
[2019-10-16] MEDS: MORPHINE SULFATE 2 MG/ML CPJ (NOT FOR IM USE) IV PRN ×4 (00:50→13:51)
[2019-10-16] MEDS: LORAZEPAM 2MG/ML CPJ IV PRN (00:51)
[2019-10-16] MEDS: ONDANSETRON HCL 4MG/2ML INJ IV PRN ×4 (00:51→13:50)
[2019-10-16] MEDS: SODIUM CHLORIDE 0.9% 1,000 ML IV SCH ×2 (00:51→20:20)
[2019-10-16] MEDS: CLONIDINE 0.1MG TABLET PO PRN (05:05)
[2019-10-16] MEDS: SODIUM CHLORIDE 0.9% INJ 3ML FLUSH IVF SCH ×3 (05:08→21:04)
[2019-10-16] MEDS: BLOOD SUGAR DIAGNOSTIC STRIP TEST SCH ×4 (05:11→21:00)
[2019-10-16] MEDS: AMLODIPINE 5MG TABLET PO SCH ×2 (09:12→21:04)
[2019-10-16] MEDS: SUCRALFATE 1 G/10 ML UDC PO SCH ×4 (09:12→21:03)
[2019-10-16] MEDS: CITRIC ACID/SODIUM CITRATE SOLN 15ML UDC PO SCH ×2 (09:12→18:30)
[2019-10-16] MEDS: METOPROLOL TARTRATE 25MG TABLET PO SCH ×2 (09:12→21:04)
[2019-10-16] MEDS: PANTOPRAZOLE SODIUM 40 MG/VIAL IV SCH (09:12)
[2019-10-16] MEDS: ENOXAPARIN 30MG/0.3ML SYR SUBCUT SCH (09:13)
[2019-10-16] MEDS: INSULIN LISPRO 100 UNITS/ML SUBCUT SCH ×4 (09:21→21:00)
[2019-10-16 10:37] LABS: BASOPHILS % 0.3 % (0.0-2.0); EOSINOPHILS % 0.1 % (0.0-5.0); LYMPHOCYTES % 24.5 % (20.0-50.0); MEAN CORPUSCULAR HEMOGLOBIN 25.9 pg (28.0-32.0); MEAN CORPUSCULAR VOLUME 78.2 fL (81.0-99.0); MEAN PLATELET VOLUME 9.3 fl (7.4-10.4); MONOCYTES % 12.6 % (2.0-8.0); NEUTROPHILS % 62.5 % (40.0-76.0); PLATELET 191 x1000/uL (130-400); RED BLOOD CELL COUNT 3.84 mill/uL (4.2-5.4); RED CELL DISTRIBUTION WIDTH 17.6 % (11.6-14.6)
[2019-10-16] MEDS: INSULIN GLARGINE UD 100 UNITS/ML SYR SUBCUT SCH (10:43)
[2019-10-17 00:03] VITALS: BP 133/72
[2019-10-17 04:00] VITALS: BP 139/69
[2019-10-17] MEDS: SODIUM CHLORIDE 0.9% INJ 3ML FLUSH IVF SCH (05:45)
[2019-10-17] MEDS: BLOOD SUGAR DIAGNOSTIC STRIP TEST SCH (05:47)
[2019-10-17 07:51] LABS: BASOPHILS % 0.3 % (0.0-2.0); EOSINOPHILS % 0.8 % (0.0-5.0); HEMATOCRIT. 25.9 % (36.0-48.0); HEMOGLOBIN. 8.7 g/dL (12.0-16.0); LYMPHOCYTES % 44.3 % (20.0-50.0); MEAN CORPUSCULAR VOLUME 77.3 fL (81.0-99.0); MEAN PLATELET VOLUME 9.4 fl (7.4-10.4); MONOCYTES % 10.2 % (2.0-8.0); NEUTROPHILS % 44.4 % (40.0-76.0); PLATELET 193 x1000/uL (130-400); RED BLOOD CELL COUNT 3.35 mill/uL (4.2-5.4); RED CELL DISTRIBUTION WIDTH 17.9 % (11.6-14.6)
[2019-10-17 08:00] VITALS: BP 141/68
[2019-10-17] MEDS: CITRIC ACID/SODIUM CITRATE SOLN 15ML UDC PO SCH (08:40)
[2019-10-17] MEDS: SUCRALFATE 1 G/10 ML UDC PO SCH (08:40)
[2019-10-17] MEDS: PANTOPRAZOLE SODIUM 40 MG/VIAL IV SCH (08:41)
[2019-10-17] MEDS: INSULIN LISPRO 100 UNITS/ML SUBCUT SCH (08:41)
[2019-10-17] MEDS: AMLODIPINE 5MG TABLET PO SCH (08:42)
[2019-10-17] MEDS: METOPROLOL TARTRATE 25MG TABLET PO SCH (08:42)
[2019-10-17] MEDS: ENOXAPARIN 30MG/0.3ML SYR SUBCUT SCH (08:43)
[2019-10-17] MEDS: INSULIN GLARGINE UD 100 UNITS/ML SYR SUBCUT SCH (11:09)
== END 2019-10-17 12:10 | disposition home or self-care (01) | DRG 682 ==
LOC: ER 18:02 → EDBEDREQTM 23:48 → EDBEDREQ 23:48 → 7WST 23:49 → ENRESERV 10-14 02:49
PROVIDERS: ADMIT Internal Medicine; ATTEND Internal Medicine
DX: I12.9 Hypertensive chronic kidney disease with stage 1 through stage 4 chronic kidney disease, or unspecified chronic kidney disease (principal); N17.0 Acute kidney failure with tubular necrosis; E44.0 Moderate protein-calorie malnutrition; E87.2 Acidosis; I16.0 Hypertensive urgency; E11.43 Type 2 diabetes mellitus with diabetic autonomic (poly)neuropathy; K31.84 Gastroparesis; D64.9 Anemia, unspecified; E11.22 Type 2 diabetes mellitus with diabetic chronic kidney disease; F41.9 Anxiety disorder, unspecified; K29.60 Other gastritis without bleeding; E11.65 Type 2 diabetes mellitus with hyperglycemia; D25.9 Leiomyoma of uterus, unspecified; K59.00 Constipation, unspecified; K44.9 Diaphragmatic hernia without obstruction or gangrene; N18.3 Chronic kidney disease, stage 3 (moderate); N20.0 Calculus of kidney; Z79.4 Long term (current) use of insulin; Z90.49 Acquired absence of other specified parts of digestive tract; Z82.49 Family history of ischemic heart disease and other diseases of the circulatory system; Z83.3 Family history of diabetes mellitus; Z88.6 Allergy status to analgesic agent; Z68.25 Body mass index [BMI] 25.0-25.9, adult
CPT/HCPCS: 36415; 36600; 71045; 74176; 80048; 80061; 80305; 81003; 82010; 82375; 82550; 82553; 82805; 82962; 83605; 83735; 84100; 84439; 84443; 84484; 93005; 93970; 96374; 97161; 99285; C1893; C9113; J0360; J1650; J1815; J2060; J2270; J2405; J2765; J7030; J7070

== ENCOUNTER 2019-10-17 21:54 | Emergency (ER) | payer MEDICARE, MEDICAID ==
[~2019-10-17] VITALS: Ht 165.1 cm; Wt 79.0 kg
[2019-10-17] MEDS ORDERED: KETOROLAC 30MG/ML VIAL IV STA (23:23)
[2019-10-17] MEDS ORDERED: SODIUM CHLORIDE 0.9% 1,000 ML IV ONE (23:23)
[2019-10-17] MEDS ORDERED: ONDANSETRON HCL 4MG/2ML INJ IV STA (23:23)
[2019-10-18 00:18] LABS: BASOPHILS % 0.6 % (0.0-2.0); EOSINOPHILS % 0.7 % (0.0-5.0); HEMATOCRIT. 25.3 % (36.0-48.0); HEMOGLOBIN. 8.6 g/dL (12.0-16.0); LYMPHOCYTES % 39.7 % (20.0-50.0); MEAN CORPUSCULAR HEMOGLOBIN 26.3 pg (28.0-32.0); MEAN PLATELET VOLUME 9.1 fl (7.4-10.4); MONOCYTES % 9.3 % (2.0-8.0); NEUTROPHILS % 49.7 % (40.0-76.0); PLATELET 201 x1000/uL (130-400); RED BLOOD CELL COUNT 3.28 mill/uL (4.2-5.4); RED CELL DISTRIBUTION WIDTH 17.1 % (11.6-14.6)
[2019-10-18 00:25] LABS: CHLORIDE 107 mEq/L (98-107)
[2019-10-18 00:31] LABS: ETHANOL BLOOD < 10 mg/dL
[2019-10-18 01:54] LABS: CLARITY URINE CLOUDY (CLEAR); COLOR URINE BLOODY (YELLOW); KETONES URINE TRACE (NEGATIVE); LEUKOCYTE ESTERASE URINE 1+ (NEGATIVE); NITRITE URINE NEGATIVE (NEGATIVE); OCCULT BLOOD URINE 3+ (NEGATIVE); PH URINE 5.5 (4.5-8.0); PROTEIN URINE 3+ (NEGATIVE); SPECIFIC GRAVITY URINE 1.023 (1.005-1.030); UROBILINOGEN URINE 0.2 E.U./dL (0.2-1.0)
[2019-10-18 02:15] LABS: *BARBITURATES SCREEN URINE NEGATIVE (NEGATIVE)
[2019-10-18] MEDS ORDERED: CEFTRIAXONE 1 G PREMIX 50 ML IV ONE (02:15)
[2019-10-18 02:16] LABS: *AMPHETAMINES SCREEN URINE NEGATIVE (NEGATIVE); *BENZODIAZEPINES SCREEN URINE NEGATIVE (NEGATIVE); *COCAINE SCREEN URINE NEGATIVE (NEGATIVE); METHADONE URINE SCREEN NEGATIVE (NEGATIVE); PHENCYCLIDINE URINE SCREEN NEGATIVE (NEGATIVE)
[2019-10-18 02:17] LABS: CANNABINOID URINE SCREEN NEGATIVE (NEGATIVE)
[2019-10-18 02:39] LABS: OPIATES URINE SCREEN PRESUMTIVE POSITIVE (NEGATIVE)
[2019-10-18] MEDS ORDERED: KETOROLAC 15MG/ML VIAL IV ONE (04:15)
[2019-10-18 04:40] VITALS: BP 116/55
== END 2019-10-18 04:41 | disposition home or self-care (01) ==
LOC: ER 21:54
DX: R10.9 Unspecified abdominal pain (principal); N30.00 Acute cystitis without hematuria; I10 Essential (primary) hypertension; E11.65 Type 2 diabetes mellitus with hyperglycemia; Z79.4 Long term (current) use of insulin; Z88.6 Allergy status to analgesic agent; Z90.49 Acquired absence of other specified parts of digestive tract
CPT/HCPCS: 36415; 74176; 80053; 80305; 80320; 81003; 81025; 83690; 85025; 96361; 96365; 96375; 96376; 99284; J0696; J1885; J2405; J7030; G0480

== ENCOUNTER 2020-03-16 20:08 | Inpatient (IN) | payer MEDICARE, MEDICAID ==
[~2020-03-16] VITALS: Ht 165.1 cm; Wt 75.7 kg
[~2020-03-16 20:08] MED LIST changes: -MEDR10TA11 PO
[2020-03-16] MEDS ORDERED: FAMOTIDINE 20MG/2ML VIAL IV STA (22:21)
[2020-03-16] MEDS ORDERED: SODIUM CHLORIDE 0.9% 1,000 ML IV ONE (22:21)
[2020-03-16] MEDS ORDERED: ONDANSETRON HCL 4MG/2ML INJ IV STA (22:21)
[2020-03-16] MEDS ORDERED: MORPHINE SULFATE 4 MG/ML CPJ (NOT FOR IM USE) IV STA (22:21)
[2020-03-16 23:09] LABS: CLARITY URINE CLOUDY (CLEAR); COLOR URINE YELLOW (YELLOW); KETONES URINE NEGATIVE (NEGATIVE); LEUKOCYTE ESTERASE URINE 2+ (NEGATIVE); NITRITE URINE POSITIVE (NEGATIVE); OCCULT BLOOD URINE 3+ (NEGATIVE); PROTEIN URINE 3+ (NEGATIVE); SPECIFIC GRAVITY URINE 1.011 (1.005-1.030); UROBILINOGEN URINE 0.2 E.U./dL (0.2-1.0)
[2020-03-16] MEDS ORDERED: MORPHINE SULFATE 4 MG/ML CPJ (NOT FOR IM USE) IV ONE (23:30)
[2020-03-16] MEDS ORDERED: ONDANSETRON HCL 4MG/2ML INJ IV ONE (23:30)
[2020-03-17 00:02] LABS: HEMATOCRIT. 29.6 % (36.0-48.0); HEMOGLOBIN. 9.5 g/dL (12.0-16.0); MEAN CORPUSCULAR HEMOGLOBIN 22.8 pg (28.0-32.0); MEAN CORPUSCULAR VOLUME 70.9 fL (81.0-99.0); MEAN PLATELET VOLUME 8.8 fl (7.4-10.4); PLATELET 249 x1000/uL (130-400); RED BLOOD CELL COUNT 4.18 mill/uL (4.2-5.4); RED CELL DISTRIBUTION WIDTH 29.5 % (11.6-14.6)
[2020-03-17 00:07] LABS: CHLORIDE 104 mEq/L (98-107)
[2020-03-17 00:15] LABS: HCG SCREEN NEGATIVE; INR 0.9; PARTIAL THROMBOPLASTIN TIME 27.8 sec (23.4-31.0); PROTHROMBIN TIME 10.2 sec (9.6-11.0)
[2020-03-17] MEDS ORDERED: CEFTRIAXONE 1 G PREMIX 50 ML IV ONE (00:15)
[2020-03-17 00:30] LABS: PLATELET ESTIMATE NORMAL
[2020-03-17] MEDS ORDERED: ONDANSETRON HCL 4MG/2ML INJ IV ONE (03:30)
[2020-03-17] MEDS ORDERED: IPRATROPIUM/ALBUTEROL 0.5-3(2.5)MG/3ML NEB HHN PRN (07:45)
[2020-03-17] MEDS ORDERED: DIPHENHYDRAMINE 50MG/ML VIAL IV PRN (07:45)
[2020-03-17] MEDS ORDERED: ONDANSETRON HCL 4MG/2ML INJ IV PRN (07:45)
[2020-03-17] MEDS ORDERED: ACETAMINOPHEN 325MG TABLET PO PRN (07:45)
[2020-03-17 08:25] VITALS: BP 148/69
[2020-03-17] MEDS: SODIUM CHLORIDE 0.9% 1,000 ML IV SCH (09:14)
[2020-03-17] MEDS: MORPHINE SULFATE 2 MG/ML CPJ (NOT FOR IM USE) IV PRN (09:33)
[2020-03-17 11:24] VITALS: BP 145/78
[2020-03-17 12:00] VITALS: BP 148/87
[2020-03-17] MEDS ORDERED: DEXTROSE 50% WATER 50ML SYRINGE IV PRN (12:45)
[2020-03-17] MEDS: BLOOD SUGAR DIAGNOSTIC STRIP TEST SCH ×3 (12:57→21:00)
[2020-03-17] MEDS: INSULIN LISPRO 100 UNITS/ML SUBCUT SCH ×3 (13:16→21:23)
[2020-03-17 16:00] VITALS: BP 137/60
[2020-03-17 16:34] LABS: CREATINE KINASE 55 IU/L (26-192); CREATINE KINASE MB FRACTION < 1.0 ng/mL (0.5-3.6)
[2020-03-17] MEDS: ALPRAZOLAM 0.5 MG TABLET PO SCH (18:23)
[2020-03-17 20:00] VITALS: BP 138/73
[2020-03-17] MEDS: CLONIDINE 0.2MG TABLET PO SCH (21:21)
[2020-03-17] MEDS: METOPROLOL TARTRATE 25MG TABLET PO SCH (21:22)
[2020-03-17] MEDS: SUCRALFATE 1 G/10 ML UDC PO SCH (21:22)
[2020-03-17 23:26] LABS: CREATINE KINASE 51 IU/L (26-192)
[2020-03-17 23:27] LABS: CREATINE KINASE MB FRACTION < 1.0 ng/mL (0.5-3.6)
[2020-03-18] VITALS: BP 150/78
[2020-03-18] MEDS ORDERED: CEFEPIME 1,000 MG in DEXTROSE 5% WATER 50 ML IV SCH ×2
[2020-03-18] MEDS ORDERED: CEFTRIAXONE 1,000 MG in DEXTROSE 5% WATER 50 ML IV SCH (01:00)
[2020-03-18 04:00] VITALS: BP 145/70
[2020-03-18] MEDS: CLONIDINE 0.2MG TABLET PO SCH ×3 (06:11→21:31)
[2020-03-18] MEDS: OMEPRAZOLE 20MG CAPSULE EXTENDED RELEASE PO SCH (06:11)
[2020-03-18] MEDS: BLOOD SUGAR DIAGNOSTIC STRIP TEST SCH ×4 (06:11→21:52)
[2020-03-18] MEDS: SUCRALFATE 1 G/10 ML UDC PO SCH ×4 (06:11→21:30)
[2020-03-18 06:33] LABS: BASOPHILS % 0.7 % (0.0-2.0); EOSINOPHILS % 2.6 % (0.0-5.0); HEMATOCRIT. 21.7 % (36.0-48.0); HEMOGLOBIN. 7.1 g/dL (12.0-16.0); LYMPHOCYTES % 11.7 % (20.0-50.0); MEAN CORPUSCULAR HEMOGLOBIN 23.1 pg (28.0-32.0); MEAN CORPUSCULAR VOLUME 70.9 fL (81.0-99.0); PLATELET 179 x1000/uL (130-400); RED BLOOD CELL COUNT 3.06 mill/uL (4.2-5.4); RED CELL DISTRIBUTION WIDTH 29.2 % (11.6-14.6)
[2020-03-18 06:44] LABS: CHLORIDE 103 mEq/L (98-107)
[2020-03-18 06:52] LABS: PHOSPHORUS 3.8 mg/dL (2.5-4.9)
[2020-03-18 06:54] LABS: LDL CHOLESTEROL 92 mg/dL (5-100)
[2020-03-18 06:56] LABS: HDL CHOLESTEROL 42 mg/dL (40-59)
[2020-03-18 08:00] VITALS: BP 168/82
[2020-03-18] MEDS: ALPRAZOLAM 0.5 MG TABLET PO SCH ×2 (08:45→17:09)
[2020-03-18] MEDS: DOCUSATE SODIUM 250MG CAPSULE PO SCH (08:45)
[2020-03-18] MEDS: AMLODIPINE 5MG TABLET PO SCH (08:46)
[2020-03-18] MEDS: METOPROLOL TARTRATE 25MG TABLET PO SCH ×2 (08:46→21:31)
[2020-03-18] MEDS: INSULIN LISPRO 100 UNITS/ML SUBCUT SCH ×4 (09:30→21:49)
[2020-03-18] MEDS: INSULIN GLARGINE UD 100 UNITS/ML SYR SUBCUT SCH (09:43)
[2020-03-18 12:00] VITALS: BP 129/60
[2020-03-18 16:00] VITALS: BP 127/66
[2020-03-18] MEDS ORDERED: CEFAZOLIN 1000MG PREMIX 50 ML IV SCH (17:00)
[2020-03-18 20:00] VITALS: BP 128/64
[2020-03-18] MEDS: MORPHINE SULFATE 2 MG/ML CPJ (NOT FOR IM USE) IV PRN (21:32)
[2020-03-18] MEDS: SODIUM CHLORIDE 0.9% 1,000 ML IV SCH (21:50)
[2020-03-19] VITALS (9 sets, daily range): BP systolic 126–170; BP diastolic 66–87
[2020-03-19] MEDS: CLONIDINE 0.2MG TABLET PO SCH ×3 (06:25→21:40)
[2020-03-19] MEDS: OMEPRAZOLE 20MG CAPSULE EXTENDED RELEASE PO SCH (06:25)
[2020-03-19] MEDS: SUCRALFATE 1 G/10 ML UDC PO SCH ×4 (06:25→21:39)
[2020-03-19] MEDS: BLOOD SUGAR DIAGNOSTIC STRIP TEST SCH ×4 (07:34→21:34)
[2020-03-19] MEDS: DOCUSATE SODIUM 250MG CAPSULE PO SCH (09:03)
[2020-03-19] MEDS: AMLODIPINE 5MG TABLET PO SCH (09:03)
[2020-03-19] MEDS: ALPRAZOLAM 0.5 MG TABLET PO SCH ×2 (09:03→17:00)
[2020-03-19] MEDS: METOPROLOL TARTRATE 25MG TABLET PO SCH ×2 (09:03→21:40)
[2020-03-19 09:49] LABS: BASOPHILS % 0.5 % (0.0-2.0); EOSINOPHILS % 2.9 % (0.0-5.0); HEMATOCRIT. 26.7 % (36.0-48.0); HEMOGLOBIN. 8.8 g/dL (12.0-16.0); LYMPHOCYTES % 11.9 % (20.0-50.0); MEAN CORPUSCULAR HEMOGLOBIN 23.9 pg (28.0-32.0); MEAN CORPUSCULAR VOLUME 72.7 fL (81.0-99.0); MEAN PLATELET VOLUME 9.2 fl (7.4-10.4); MONOCYTES % 10.9 % (2.0-8.0); NEUTROPHILS % 73.8 % (40.0-76.0); PLATELET 211 x1000/uL (130-400); RED BLOOD CELL COUNT 3.67 mill/uL (4.2-5.4)
[2020-03-19] MEDS: INSULIN LISPRO 100 UNITS/ML SUBCUT SCH ×4 (09:57→21:00)
[2020-03-19 10:02] LABS: PHOSPHORUS 3.6 mg/dL (2.5-4.9)
[2020-03-19] MEDS: INSULIN GLARGINE UD 100 UNITS/ML SYR SUBCUT SCH (10:56)
[2020-03-19] MEDS: MORPHINE SULFATE 2 MG/ML CPJ (NOT FOR IM USE) IV PRN (12:26)
[2020-03-19] MEDS: CLONIDINE 0.1MG TABLET PO PRN (12:26)
[2020-03-19] MEDS: CEFAZOLIN 1000MG PREMIX 50 ML IV SCH (17:19)
[2020-03-19] MEDS ORDERED: MIDAZOLAM HCL 2 MG/2 ML VIAL ONE (17:55)
[2020-03-19] MEDS ORDERED: PROPOFOL 200MG/20ML VIAL IV ONE (17:55)
[2020-03-19] MEDS ORDERED: FENTANYL CITRATE/PF 50MCG/ML 2ML VIAL ONE (17:55)
[2020-03-19] MEDS ORDERED: METOCLOPRAMIDE HCL 10MG/2ML VIAL ONE (17:56)
[2020-03-19] MEDS ORDERED: ONDANSETRON HCL 4MG/2ML INJ ONE (17:56)
[2020-03-19] MEDS ORDERED: LIDOCAINE HCL/PF 1% 10 MG/ML 5ML VIAL ONE (17:56)
[2020-03-19] MEDS ORDERED: SUCCINYLCHOLINE CHLORIDE 200MG/10ML IV ONE (17:56)
[2020-03-19] MEDS ORDERED: ROCURONIUM BROMIDE 10MG/ML VIAL 5ML IV ONE (17:57)
[2020-03-19] MEDS ORDERED: SODIUM CHLORIDE 0.9% 10ML VIAL ONE ×2 (18:31→18:40)
[2020-03-19] MEDS ORDERED: EPHEDRINE SULFATE 50MG/ML VIAL ONE (18:31)
[2020-03-19] MEDS ORDERED: HYDRALAZINE 20MG/ML VIAL ONE (18:40)
[2020-03-19] MEDS ORDERED: HYDROMORPHONE HCL/PF 2MG/ML CPJ IV PRN (19:15)
[2020-03-20] VITALS: BP 123/65
[2020-03-20] MEDS: MORPHINE SULFATE 2 MG/ML CPJ (NOT FOR IM USE) IV PRN (00:35)
[2020-03-20 04:00] VITALS: BP_SYST 126; BP_SYST 134; BP_DIAS 66; BP_DIAS 77
[2020-03-20] MEDS: CEFAZOLIN 1000MG PREMIX 50 ML IV SCH ×2 (04:25→17:00)
[2020-03-20] MEDS: OMEPRAZOLE 20MG CAPSULE EXTENDED RELEASE PO SCH (06:09)
[2020-03-20] MEDS: CLONIDINE 0.2MG TABLET PO SCH ×2 (06:09→14:44)
[2020-03-20] MEDS: BLOOD SUGAR DIAGNOSTIC STRIP TEST SCH ×3 (06:09→17:42)
[2020-03-20] MEDS: SUCRALFATE 1 G/10 ML UDC PO SCH ×3 (06:18→17:25)
[2020-03-20] MEDS: SODIUM CHLORIDE 0.9% 1,000 ML IV SCH (06:18)
[2020-03-20 06:36] LABS: BASOPHILS % 0.3 % (0.0-2.0); EOSINOPHILS % 2.9 % (0.0-5.0); HEMATOCRIT. 25.8 % (36.0-48.0); HEMOGLOBIN. 8.6 g/dL (12.0-16.0); LYMPHOCYTES % 14.6 % (20.0-50.0); MEAN CORPUSCULAR HEMOGLOBIN 24.2 pg (28.0-32.0); MEAN CORPUSCULAR VOLUME 72.7 fL (81.0-99.0); MEAN PLATELET VOLUME 9.6 fl (7.4-10.4); MONOCYTES % 7.6 % (2.0-8.0); NEUTROPHILS % 74.6 % (40.0-76.0); PLATELET 246 x1000/uL (130-400); RED BLOOD CELL COUNT 3.56 mill/uL (4.2-5.4); RED CELL DISTRIBUTION WIDTH 27.5 % (11.6-14.6)
[2020-03-20 06:59] LABS: PHOSPHORUS 3.8 mg/dL (2.5-4.9)
[2020-03-20 08:00] VITALS: BP 129/63
[2020-03-20] MEDS: DOCUSATE SODIUM 250MG CAPSULE PO SCH (08:21)
[2020-03-20] MEDS: ALPRAZOLAM 0.5 MG TABLET PO SCH ×2 (08:21→17:26)
[2020-03-20] MEDS: INSULIN LISPRO 100 UNITS/ML SUBCUT SCH ×3 (08:23→17:42)
[2020-03-20] MEDS: AMLODIPINE 5MG TABLET PO SCH (08:35)
[2020-03-20] MEDS: METOPROLOL TARTRATE 25MG TABLET PO SCH (08:35)
[2020-03-20] MEDS: INSULIN GLARGINE UD 100 UNITS/ML SYR SUBCUT SCH (10:34)
[2020-03-20 12:00] VITALS: BP 150/79
[2020-03-20] MEDS: FERROUS SULFATE 325MG TABLET PO SCH ×2 (12:54→17:26)
[2020-03-20] MEDS ORDERED: NITR-87 MT (14:19)
[2020-03-20] MEDS ORDERED: LEVO250T58 MT (14:20)
[2020-03-20] MEDS: CLONIDINE 0.1MG TABLET PO PRN (14:36)
[2020-03-20 16:00] VITALS: BP 151/83
[2020-03-20] MEDS ORDERED: MEDROXYPROGESTERONE ACETATE 150MG/ML VIAL IM SCH (16:00)
[2020-03-20 18:01] VITALS: BP 151/83
== END 2020-03-20 18:09 | disposition home or self-care (01) | DRG 854 ==
LOC: ER 20:08 → 6EST 03-17 02:16 → EDBEDREQ 03-17 02:18 → EDBEDREQSVC 03-17 02:18 → EDBEDREQTM 03-17 02:18 → ENRESERV 03-17 07:36
PROVIDERS: ADMIT Internal Medicine; ATTEND Internal Medicine
PROC: 0UDB7ZZ Extraction of Endometrium, Via Natural or Artificial Opening (ICD-10-PCS; principal; 2020-03-19)
PROC: 30233N1 Transfusion of Nonautologous Red Blood Cells into Peripheral Vein, Percutaneous Approach (ICD-10-PCS; 2020-03-19)
DX: A41.51 Sepsis due to Escherichia coli [E. coli] (principal); E44.0 Moderate protein-calorie malnutrition; B37.81 Candidal esophagitis; N17.9 Acute kidney failure, unspecified; N18.4 Chronic kidney disease, stage 4 (severe); D25.9 Leiomyoma of uterus, unspecified; E11.43 Type 2 diabetes mellitus with diabetic autonomic (poly)neuropathy; B96.89 Other specified bacterial agents as the cause of diseases classified elsewhere; E83.42 Hypomagnesemia; K29.60 Other gastritis without bleeding; N92.1 Excessive and frequent menstruation with irregular cycle; D50.0 Iron deficiency anemia secondary to blood loss (chronic); E11.22 Type 2 diabetes mellitus with diabetic chronic kidney disease; E11.65 Type 2 diabetes mellitus with hyperglycemia; F17.290 Nicotine dependence, other tobacco product, uncomplicated; F41.9 Anxiety disorder, unspecified; I12.9 Hypertensive chronic kidney disease with stage 1 through stage 4 chronic kidney disease, or unspecified chronic kidney disease; J45.909 Unspecified asthma, uncomplicated; K31.84 Gastroparesis; K44.9 Diaphragmatic hernia without obstruction or gangrene; N20.0 Calculus of kidney; N30.90 Cystitis, unspecified without hematuria; Z79.4 Long term (current) use of insulin; Z82.49 Family history of ischemic heart disease and other diseases of the circulatory system; Z83.3 Family history of diabetes mellitus; Z68.27 Body mass index [BMI] 27.0-27.9, adult; Z88.8 Allergy status to other drugs, medicaments and biological substances; Z79.01 Long term (current) use of anticoagulants; Z79.899 Other long term (current) drug therapy; Z90.49 Acquired absence of other specified parts of digestive tract
CPT/HCPCS: 36415; 71045; 74176; 80048; 80053; 80061; 81003; 82550; 82553; 82962; 83036; 83735; 83880; 84100; 84484; 84703; 85025; 86850; 86900; 86920; 87077; 87186; 88305; 93005; 93970; 99285; J0330; J0360; J0690; J0692; J0696; J1050; J1815; J2250; J2270; J2405; J2704; J2765; J3010; J3490; J7030; J7060; P9016

== ENCOUNTER 2020-03-23 15:19 | Inpatient (IN) | payer MEDICARE, MEDICAID ==
[~2020-03-23] VITALS: Ht 165.1 cm; Wt 80.7 kg
[~2020-03-23 15:19] MED LIST changes: +LEVO250T58 MT
[2020-03-23] MEDS ORDERED: ONDANSETRON HCL 4MG/2ML INJ IV STA (15:54)
[2020-03-23] MEDS ORDERED: FAMOTIDINE 20MG/2ML VIAL IV STA (15:54)
[2020-03-23] MEDS ORDERED: SODIUM CHLORIDE 0.9% 1,000 ML IV ONE (15:54)
[2020-03-23] MEDS ORDERED: MORPHINE SULFATE 4 MG/ML CPJ (NOT FOR IM USE) IV STA (15:54)
[2020-03-23 16:38] LABS: BASOPHILS % 0.8 % (0.0-2.0); EOSINOPHILS % 0.4 % (0.0-5.0); HEMATOCRIT. 30.6 % (36.0-48.0); HEMOGLOBIN. 10.3 g/dL (12.0-16.0); LYMPHOCYTES % 8.3 % (20.0-50.0); MEAN CORPUSCULAR HEMOGLOBIN 24.7 pg (28.0-32.0); MEAN CORPUSCULAR VOLUME 73.6 fL (81.0-99.0); MEAN PLATELET VOLUME 8.7 fl (7.4-10.4); MONOCYTES % 2.9 % (2.0-8.0); NEUTROPHILS % 87.6 % (40.0-76.0); PLATELET 442 x1000/uL (130-400); RED BLOOD CELL COUNT 4.16 mill/uL (4.2-5.4); RED CELL DISTRIBUTION WIDTH 27.6 % (11.6-14.6)
[2020-03-23 16:39] LABS: CHLORIDE 109 mEq/L (98-107); INR 0.9; PROTHROMBIN TIME 10.1 sec (9.6-11.0)
[2020-03-23 16:44] LABS: ETHANOL BLOOD < 10 mg/dL
[2020-03-23] MEDS ORDERED: LORAZEPAM 2MG/ML CPJ IV ONE (17:15)
[2020-03-23] MEDS ORDERED: SODIUM CHLORIDE 0.9% 1000ML BAG (SEPSIS BOLUS) IV ONE (17:15)
[2020-03-23 17:33] LABS: HCG SCREEN NEGATIVE
[2020-03-23 17:38] LABS: PLATELET ESTIMATE INCREASED
[2020-03-23] MEDS ORDERED: CEFAZOLIN 1000MG PREMIX 50 ML IV ONE (17:45)
[2020-03-23 19:32] LABS: CLARITY URINE CLEAR (CLEAR); COLOR URINE YELLOW (YELLOW); KETONES URINE NEGATIVE (NEGATIVE); LEUKOCYTE ESTERASE URINE NEGATIVE (NEGATIVE); NITRITE URINE NEGATIVE (NEGATIVE); OCCULT BLOOD URINE 1+ (NEGATIVE); PROTEIN URINE 4+ (NEGATIVE); SPECIFIC GRAVITY URINE 1.015 (1.005-1.030); UROBILINOGEN URINE 0.2 E.U./dL (0.2-1.0)
[2020-03-23] MEDS ORDERED: IPRATROPIUM/ALBUTEROL 0.5-3(2.5)MG/3ML NEB NEB PRN (20:00)
[2020-03-23] MEDS ORDERED: GUAIFENESIN 200MG/10ML SUGAR FREE UDC PO PRN (20:00)
[2020-03-23] MEDS ORDERED: DOCUSATE SODIUM 100MG CAPSULE PO PRN (20:00)
[2020-03-23] MEDS ORDERED: MAGNESIUM/ALUMINUM HYDROXIDE/SIMETHICONE 30ML UDC PO PRN (20:00)
[2020-03-23] MEDS ORDERED: ACETAMINOPHEN 325MG TABLET PO PRN (20:00)
[2020-03-23] MEDS ORDERED: DEXTROSE 50% WATER 50ML SYRINGE IV PRN (20:00)
[2020-03-23 20:11] LABS: *AMPHETAMINES SCREEN URINE NEGATIVE (NEGATIVE); *BARBITURATES SCREEN URINE NEGATIVE (NEGATIVE); *COCAINE SCREEN URINE NEGATIVE (NEGATIVE); METHADONE URINE SCREEN NEGATIVE (NEGATIVE); PHENCYCLIDINE URINE SCREEN NEGATIVE (NEGATIVE)
[2020-03-23 20:12] LABS: *BENZODIAZEPINES SCREEN URINE PRESUMTIVE POSITIVE (NEGATIVE); CANNABINOID URINE SCREEN PRESUMTIVE POSITIVE (NEGATIVE); OPIATES URINE SCREEN PRESUMTIVE POSITIVE (NEGATIVE)
[2020-03-23] MEDS: MORPHINE SULFATE 2 MG/ML CPJ (NOT FOR IM USE) IV PRN (20:28)
[2020-03-23] MEDS: ONDANSETRON HCL 4MG/2ML INJ IV PRN (20:29)
[2020-03-23] MEDS ORDERED: HYDRALAZINE 20MG/ML VIAL IV PRN (21:00)
[2020-03-23] MEDS: LORAZEPAM 2MG/ML CPJ IV PRN (21:41)
[2020-03-23] MEDS: DIPHENHYDRAMINE 50MG/ML VIAL IV PRN (22:49)
[2020-03-23] MEDS: CLONIDINE 0.1MG TABLET PO PRN (22:51)
[2020-03-24] MEDS: MORPHINE SULFATE 2 MG/ML CPJ (NOT FOR IM USE) IV PRN ×4 (00:58→16:39)
[2020-03-24] MEDS ORDERED: HYDRALAZINE 20MG/ML VIAL IV PRN (02:00)
[2020-03-24] MEDS: HYDROCODONE/ACETAMINOPHEN 10/325MG TABLET PO PRN ×2 (02:48→09:25)
[2020-03-24] MEDS: CEFAZOLIN 1000MG PREMIX 50 ML IV SCH ×3 (03:22→23:11)
[2020-03-24] MEDS: DIPHENHYDRAMINE 50MG/ML VIAL IV PRN (03:23)
[2020-03-24] MEDS: LORAZEPAM 2MG/ML CPJ IV PRN ×2 (03:23→18:27)
[2020-03-24] MEDS: PANTOPRAZOLE SODIUM 40 MG/VIAL IV SCH (05:50)
[2020-03-24 06:01] LABS: HEMOGLOBIN. 9.8 g/dL (12.0-16.0); MEAN CORPUSCULAR VOLUME 73.8 fL (81.0-99.0); MEAN PLATELET VOLUME 8.5 fl (7.4-10.4); PLATELET 465 x1000/uL (130-400); RED BLOOD CELL COUNT 4.07 mill/uL (4.2-5.4); RED CELL DISTRIBUTION WIDTH 28.5 % (11.6-14.6)
[2020-03-24 06:09] LABS: CHLORIDE 110 mEq/L (98-107)
[2020-03-24] MEDS: INSULIN LISPRO 100 UNITS/ML SUBCUT SCH ×5 (06:55→21:00)
[2020-03-24] MEDS: CLONIDINE 0.1MG TABLET PO PRN ×2 (07:09→16:39)
[2020-03-24 07:11] LABS: PLATELET ESTIMATE INCREASED
[2020-03-24] MEDS: BLOOD SUGAR DIAGNOSTIC STRIP TEST SCH ×5 (08:57→21:00)
[2020-03-24] MEDS: SODIUM CHLORIDE 0.9% INJ 3ML FLUSH IVF SCH ×3 (08:58→23:11)
[2020-03-24] MEDS ORDERED: CLONIDINE 0.3MG TABLET PO PRN (09:00)
[2020-03-24] MEDS ORDERED: HYDRALAZINE HCL 50MG TABLET PO SCH (09:00)
[2020-03-24] MEDS: METOPROLOL TARTRATE 50MG TABLET PO SCH ×2 (09:18→23:11)
[2020-03-24] MEDS: ENOXAPARIN 30MG/0.3ML SYR SUBCUT SCH (09:19)
[2020-03-24] MEDS: AMLODIPINE 10MG TABLET PO SCH (09:19)
[2020-03-24 09:40] LABS: CREATINE KINASE 113 IU/L (26-192)
[2020-03-24] MEDS: SODIUM CHLORIDE 0.45% 1,000 ML IV SCH ×2 (13:35→14:25)
[2020-03-24] MEDS: HYDRALAZINE HCL 50MG TABLET PO SCH ×2 (14:53→23:10)
[2020-03-24 16:08] VITALS: BP 185/95
[2020-03-24 19:26] VITALS: BP 188/96
[2020-03-24 20:00] VITALS: BP 135/72
[2020-03-25] VITALS: BP 139/68
[2020-03-25] MEDS: SODIUM CHLORIDE 0.45% 1,000 ML IV SCH ×2 (03:03→12:48)
[2020-03-25 04:00] VITALS: BP 147/79
[2020-03-25] MEDS: MORPHINE SULFATE 2 MG/ML CPJ (NOT FOR IM USE) IV PRN (05:05)
[2020-03-25] MEDS: CEFAZOLIN 1000MG PREMIX 50 ML IV SCH ×3 (05:06→21:11)
[2020-03-25] MEDS: SODIUM CHLORIDE 0.9% INJ 3ML FLUSH IVF SCH ×3 (05:45→21:11)
[2020-03-25] MEDS: ONDANSETRON HCL 4MG/2ML INJ IV PRN ×2 (05:49→13:52)
[2020-03-25] MEDS: HYDRALAZINE HCL 50MG TABLET PO SCH ×3 (05:50→21:10)
[2020-03-25] MEDS: HYDROCODONE/ACETAMINOPHEN 10/325MG TABLET PO PRN ×3 (06:37→21:25)
[2020-03-25] MEDS: BLOOD SUGAR DIAGNOSTIC STRIP TEST SCH ×4 (06:38→21:11)
[2020-03-25] MEDS: LORAZEPAM 2MG/ML CPJ IV PRN ×3 (07:35→21:24)
[2020-03-25] MEDS: INSULIN LISPRO 100 UNITS/ML SUBCUT SCH ×4 (07:50→21:56)
[2020-03-25 08:15] VITALS: BP 191/89
[2020-03-25] MEDS: ENOXAPARIN 30MG/0.3ML SYR SUBCUT SCH (09:06)
[2020-03-25] MEDS: METOPROLOL TARTRATE 50MG TABLET PO SCH ×2 (09:10→21:10)
[2020-03-25] MEDS: AMLODIPINE 10MG TABLET PO SCH (09:11)
[2020-03-25] MEDS: PANTOPRAZOLE SODIUM 40 MG/VIAL IV SCH (09:11)
[2020-03-25] MEDS: METOCLOPRAMIDE HCL 10MG/2ML VIAL IV SCH ×2 (11:39→18:08)
[2020-03-25 12:12] VITALS: BP 186/86
[2020-03-25] MEDS: CLONIDINE 0.1MG TABLET PO PRN (13:46)
[2020-03-25 14:01] LABS: HEMATOCRIT. 31.3 % (36.0-48.0); HEMOGLOBIN. 10.4 g/dL (12.0-16.0); MEAN CORPUSCULAR HEMOGLOBIN 24.7 pg (28.0-32.0); PLATELET 572 x1000/uL (130-400); RED BLOOD CELL COUNT 4.23 mill/uL (4.2-5.4); RED CELL DISTRIBUTION WIDTH 28.9 % (11.6-14.6)
[2020-03-25 14:21] LABS: PLATELET ESTIMATE INCREASED
[2020-03-25 15:57] LABS: CHLORIDE 105 mEq/L (98-107)
[2020-03-25 16:20] VITALS: BP 169/89
[2020-03-25 20:00] VITALS: BP 161/89
[2020-03-26] VITALS: BP 174/100
[2020-03-26] MEDS: MORPHINE SULFATE 2 MG/ML CPJ (NOT FOR IM USE) IV PRN ×4 (00:03→21:11)
[2020-03-26] MEDS: METOCLOPRAMIDE HCL 10MG/2ML VIAL IV SCH ×4 (00:03→18:10)
[2020-03-26] MEDS: ONDANSETRON HCL 4MG/2ML INJ IV PRN ×2 (00:03→18:10)
[2020-03-26] MEDS: CLONIDINE 0.1MG TABLET PO PRN (00:04)
[2020-03-26 04:00] VITALS: BP 153/71
[2020-03-26] MEDS: HYDRALAZINE HCL 50MG TABLET PO SCH ×3 (05:33→21:40)
[2020-03-26] MEDS: LORAZEPAM 2MG/ML CPJ IV PRN ×4 (05:34→22:50)
[2020-03-26] MEDS: SODIUM CHLORIDE 0.45% 1,000 ML IV SCH (05:47)
[2020-03-26] MEDS: SODIUM CHLORIDE 0.9% INJ 3ML FLUSH IVF SCH ×2 (05:47→13:39)
[2020-03-26] MEDS: CEFAZOLIN 1000MG PREMIX 50 ML IV SCH ×3 (05:47→21:11)
[2020-03-26] MEDS: BLOOD SUGAR DIAGNOSTIC STRIP TEST SCH ×4 (06:23→21:00)
[2020-03-26 08:00] VITALS: BP 165/99
[2020-03-26] MEDS: PANTOPRAZOLE SODIUM 40 MG/VIAL IV SCH (08:27)
[2020-03-26] MEDS: ENOXAPARIN 30MG/0.3ML SYR SUBCUT SCH (08:28)
[2020-03-26] MEDS: METOPROLOL TARTRATE 50MG TABLET PO SCH ×2 (08:30→21:10)
[2020-03-26] MEDS: AMLODIPINE 10MG TABLET PO SCH (08:30)
[2020-03-26] MEDS: INSULIN LISPRO 100 UNITS/ML SUBCUT SCH ×4 (08:30→23:01)
[2020-03-26 08:35] LABS: BASOPHILS % 0.5 % (0.0-2.0); EOSINOPHILS % 0.2 % (0.0-5.0); HEMATOCRIT. 29.8 % (36.0-48.0); HEMOGLOBIN. 9.9 g/dL (12.0-16.0); LYMPHOCYTES % 9.6 % (20.0-50.0); MEAN CORPUSCULAR HEMOGLOBIN 24.4 pg (28.0-32.0); MEAN CORPUSCULAR VOLUME 73.4 fL (81.0-99.0); MEAN PLATELET VOLUME 7.6 fl (7.4-10.4); MONOCYTES % 4.2 % (2.0-8.0); NEUTROPHILS % 85.5 % (40.0-76.0); PLATELET 487 x1000/uL (130-400); RED BLOOD CELL COUNT 4.06 mill/uL (4.2-5.4)
[2020-03-26 08:49] LABS: PHOSPHORUS 3.7 mg/dL (2.5-4.9)
[2020-03-26 11:54] VITALS: BP 155/89
[2020-03-26] MEDS: HYDROCODONE/ACETAMINOPHEN 10/325MG TABLET PO PRN ×2 (12:15→16:17)
[2020-03-26] MEDS ORDERED: MAGNESIUM 1 G PREMIX 100 ML IV NR (13:00)
[2020-03-26] MEDS ORDERED: SORBITOL 70% SOLN 30ML PO SCH (15:30)
[2020-03-26 16:00] VITALS: BP 159/79
[2020-03-26 21:00] VITALS: BP 161/93
[2020-03-26] MEDS ORDERED: BISACODYL 10MG SUPP PR SCH (21:00)
[2020-03-26] MEDS: SORBITOL 70% SOLN 30ML PO SCH ×2 (21:10→21:36)
[2020-03-27 00:16] VITALS: BP 142/72
[2020-03-27] MEDS: METOCLOPRAMIDE HCL 10MG/2ML VIAL IV SCH ×4 (01:50→17:50)
[2020-03-27 04:22] VITALS: BP 134/88
[2020-03-27] MEDS: SODIUM CHLORIDE 0.9% INJ 3ML FLUSH IVF SCH ×3 (05:08→13:36)
[2020-03-27] MEDS: HYDRALAZINE HCL 50MG TABLET PO SCH ×2 (06:08→13:36)
[2020-03-27] MEDS: CEFAZOLIN 1000MG PREMIX 50 ML IV SCH ×2 (06:08→13:36)
[2020-03-27] MEDS: INSULIN LISPRO 100 UNITS/ML SUBCUT SCH ×3 (06:27→18:03)
[2020-03-27] MEDS: BLOOD SUGAR DIAGNOSTIC STRIP TEST SCH ×3 (06:46→17:20)
[2020-03-27 07:37] LABS: EOSINOPHILS % 0.8 % (0.0-5.0); HEMATOCRIT. 26.3 % (36.0-48.0); HEMOGLOBIN. 8.9 g/dL (12.0-16.0); LYMPHOCYTES % 18.3 % (20.0-50.0); MEAN CORPUSCULAR HEMOGLOBIN 24.8 pg (28.0-32.0); MEAN CORPUSCULAR VOLUME 73.6 fL (81.0-99.0); MEAN PLATELET VOLUME 8.3 fl (7.4-10.4); MONOCYTES % 7.2 % (2.0-8.0); NEUTROPHILS % 72.7 % (40.0-76.0); PLATELET 427 x1000/uL (130-400); RED BLOOD CELL COUNT 3.57 mill/uL (4.2-5.4); RED CELL DISTRIBUTION WIDTH 27.6 % (11.6-14.6)
[2020-03-27 07:51] LABS: PHOSPHORUS 4.1 mg/dL (2.5-4.9)
[2020-03-27 08:00] VITALS: BP 153/66
[2020-03-27] MEDS ORDERED: POLYETHYLENE GLYCOL 3350 (17GM) 1 DOSE PACK PO SCH (09:00)
[2020-03-27] MEDS: PANTOPRAZOLE SODIUM 40 MG/VIAL IV SCH (09:01)
[2020-03-27] MEDS: METOPROLOL TARTRATE 50MG TABLET PO SCH (09:01)
[2020-03-27] MEDS: ENOXAPARIN 30MG/0.3ML SYR SUBCUT SCH (09:02)
[2020-03-27] MEDS: AMLODIPINE 10MG TABLET PO SCH (09:02)
[2020-03-27] MEDS: SORBITOL 70% SOLN 30ML PO SCH (09:02)
[2020-03-27] MEDS ORDERED: POTASSIUM CHLORIDE 20MEQ TABLET SR PO SCH (10:00)
[2020-03-27] MEDS: MORPHINE SULFATE 2 MG/ML CPJ (NOT FOR IM USE) IV PRN ×2 (10:14→16:21)
[2020-03-27 12:00] VITALS: BP 151/77
[2020-03-27] MEDS: HYDROCODONE/ACETAMINOPHEN 10/325MG TABLET PO PRN (12:07)
[2020-03-27 16:00] VITALS: BP 141/69
[2020-03-27] MEDS: LORAZEPAM 2MG/ML CPJ IV PRN (18:02)
[2020-03-27 20:27] VITALS: BP 140/78
== END 2020-03-27 21:30 | disposition home or self-care (01) | DRG 74 ==
LOC: ER 15:19 → 6WST 18:59 → EDBEDREQ 19:02 → EDBEDREQTM 19:02 → EDBEDREQSVC 03-24 09:18 → ENRESERV 03-24 14:39 → 6WST 03-26 23:41
PROVIDERS: ADMIT Internal Medicine; ATTEND Internal Medicine
DX: E11.43 Type 2 diabetes mellitus with diabetic autonomic (poly)neuropathy (principal); N17.9 Acute kidney failure, unspecified; N39.0 Urinary tract infection, site not specified; E44.1 Mild protein-calorie malnutrition; K31.84 Gastroparesis; N18.9 Chronic kidney disease, unspecified; N92.0 Excessive and frequent menstruation with regular cycle; D50.9 Iron deficiency anemia, unspecified; I12.9 Hypertensive chronic kidney disease with stage 1 through stage 4 chronic kidney disease, or unspecified chronic kidney disease; E11.22 Type 2 diabetes mellitus with diabetic chronic kidney disease; D25.9 Leiomyoma of uterus, unspecified; K21.9 Gastro-esophageal reflux disease without esophagitis; E86.9 Volume depletion, unspecified; K59.03 Drug induced constipation; T40.605A Adverse effect of unspecified narcotics, initial encounter; Z90.49 Acquired absence of other specified parts of digestive tract; Z88.8 Allergy status to other drugs, medicaments and biological substances; Z79.2 Long term (current) use of antibiotics; Z79.01 Long term (current) use of anticoagulants; Z79.4 Long term (current) use of insulin; Z79.899 Other long term (current) drug therapy; Y92.89 Other specified places as the place of occurrence of the external cause; Z68.29 Body mass index [BMI] 29.0-29.9, adult
CPT/HCPCS: 36415; 71045; 74018; 76700; 80048; 80053; 80305; 80320; 81003; 82550; 82570; 82962; 83036; 83605; 83735; 84100; 84156; 84703; 85025; 99285; C9113; J0360; J0690; J1200; J1650; J1815; J2060; J2270; J2405; J2765; J3475; J3490; J7030; G0480

== ENCOUNTER 2020-09-28 11:48 | Emergency (ER) | payer MEDICARE, MEDICAID ==
[~2020-09-28] VITALS: Ht 165.1 cm; Wt 73.0 kg
[2020-09-28 12:10] VITALS: BP 143/84
[2020-09-29] MEDS ORDERED: FERR325T6 MT (05:36)
[2020-09-29] MEDS ORDERED: SIMV-43 MT (05:36)
[2020-09-29] MEDS ORDERED: DOCU100T MT (05:36)
== END 2020-09-28 13:40 | disposition left against medical advice (07) ==
LOC: ER 11:48
DX: R06.02 Shortness of breath (principal); Z53.21 Procedure and treatment not carried out due to patient leaving prior to being seen by health care provider

== ENCOUNTER 2020-10-11 21:12 | Emergency (ER) | payer MEDICARE, MEDICAID ==
[~2020-10-11] VITALS: Ht 165.1 cm; Wt 73.0 kg
[~2020-10-11 21:12] MED LIST changes: +DOCU100T MT; +FERR325T6 MT; +SIMV-43 MT
[2020-10-11 21:14] VITALS: BP 109/68
[2020-10-11] MEDS ORDERED: SODIUM CHLORIDE 0.9% 1,000 ML IV ONE (22:45)
== END 2020-10-12 00:18 | disposition left against medical advice (07) ==
LOC: ER 21:12
DX: N93.9 Abnormal uterine and vaginal bleeding, unspecified (principal); Z53.21 Procedure and treatment not carried out due to patient leaving prior to being seen by health care provider
CPT/HCPCS: 93005; J7030; 99283

== ENCOUNTER 2020-10-14 17:31 | Inpatient (IN) | payer MEDICARE, MEDICAID ==
[~2020-10-14] VITALS: Ht 165.1 cm; Wt 73.9 kg
[2020-10-14 19:12] LABS: BASOPHILS % 0.4 % (0.0-2.0); EOSINOPHILS % 0.6 % (0.0-5.0); LYMPHOCYTES % 13.6 % (20.0-50.0); MEAN CORPUSCULAR HEMOGLOBIN 28.6 pg (28.0-32.0); MEAN CORPUSCULAR VOLUME 85.3 fL (81.0-99.0); MEAN PLATELET VOLUME 8.7 fl (7.4-10.4); MONOCYTES % 4.2 % (2.0-8.0); NEUTROPHILS % 81.2 % (40.0-76.0); PLATELET 290 x1000/uL (130-400); RED BLOOD CELL COUNT 1.89 mill/uL (4.2-5.4)
[2020-10-14 19:17] LABS: HEMATOCRIT. 16.1 % (36.0-48.0); HEMOGLOBIN. 5.4 g/dL (12.0-16.0)
[2020-10-14 19:18] LABS: CHLORIDE 104 mEq/L (98-107)
[2020-10-14 19:22] LABS: PROTHROMBIN TIME 10.3 sec (9.6-11.0)
[2020-10-14 19:51] LABS: CLARITY URINE TURBID (CLEAR); COLOR URINE RED (YELLOW); KETONES URINE NEGATIVE (NEGATIVE); LEUKOCYTE ESTERASE URINE 3+ (NEGATIVE); NITRITE URINE POSITIVE (NEGATIVE); OCCULT BLOOD URINE 2+ (NEGATIVE); PROTEIN URINE 2+ (NEGATIVE); SPECIFIC GRAVITY URINE 1.023 (1.005-1.030); UROBILINOGEN URINE 0.2 E.U./dL (0.2-1.0)
[2020-10-14] MEDS ORDERED: CEFTRIAXONE 1 G PREMIX 50 ML IV NR (20:30)
[2020-10-14] MEDS ORDERED: LORAZEPAM 2MG/ML CPJ IV ONE (22:00)
[2020-10-15] VITALS (8 sets, daily range): BP systolic 115–159; BP diastolic 61–90
[2020-10-15] MEDS ORDERED: HYDR-3280 PO (02:49)
[2020-10-15] MEDS ORDERED: HYDROCODONE/ACETAMINOPHEN 10/325MG TABLET PO PRN (03:00)
[2020-10-15] MEDS ORDERED: NON FORMULARY PATIENT HOME MED XX SCH (03:00)
[2020-10-15] MEDS: ALPRAZOLAM 0.5 MG TABLET PO SCH ×3 (03:39→21:57)
[2020-10-15] MEDS ORDERED: DEXTROSE 50% WATER 50ML SYRINGE IV PRN (05:15)
[2020-10-15] MEDS ORDERED: SODIUM CHLORIDE 0.9% 1,000 ML IV ONE (05:30)
[2020-10-15] MEDS: BLOOD SUGAR DIAGNOSTIC STRIP TEST SCH ×4 (07:28→21:57)
[2020-10-15] MEDS: INSULIN LISPRO 100 UNITS/ML SUBCUT SCH ×4 (07:50→21:58)
[2020-10-15] MEDS: CLONIDINE 0.2MG TABLET PO SCH ×2 (09:00→21:56)
[2020-10-15] MEDS ORDERED: DOCUSATE SODIUM 250MG CAPSULE PO SCH (09:00)
[2020-10-15] MEDS ORDERED: ALPRAZOLAM 0.5 MG TABLET PO SCH (09:00)
[2020-10-15] MEDS ORDERED: LEVOFLOXACIN 250MG TABLET PO SCH (09:00)
[2020-10-15] MEDS: SUCRALFATE 1 G/10 ML UDC PO SCH ×4 (09:23→21:57)
[2020-10-15] MEDS: METOPROLOL TARTRATE 25MG TABLET PO SCH ×2 (09:23→21:57)
[2020-10-15] MEDS: AMLODIPINE 5MG TABLET PO SCH (09:23)
[2020-10-15] MEDS: DOCUSATE SODIUM 100MG CAPSULE PO SCH ×2 (09:23→17:36)
[2020-10-15] MEDS: OMEPRAZOLE 20MG CAPSULE EXTENDED RELEASE PO SCH ×2 (09:24→17:36)
[2020-10-15] MEDS: FERROUS SULFATE 325MG TABLET PO SCH ×3 (09:24→17:36)
[2020-10-15 11:56] LABS: BASOPHILS % 0.5 % (0.0-2.0); EOSINOPHILS % 4.2 % (0.0-5.0); LYMPHOCYTES % 23.8 % (20.0-50.0); MEAN CORPUSCULAR HEMOGLOBIN 28.9 pg (28.0-32.0); MEAN CORPUSCULAR VOLUME 86.6 fL (81.0-99.0); MEAN PLATELET VOLUME 9.4 fl (7.4-10.4); MONOCYTES % 6.4 % (2.0-8.0); NEUTROPHILS % 65.1 % (40.0-76.0); PLATELET 246 x1000/uL (130-400); RED BLOOD CELL COUNT 2.34 mill/uL (4.2-5.4); RED CELL DISTRIBUTION WIDTH 14.9 % (11.6-14.6)
[2020-10-15 12:01] LABS: HEMATOCRIT. 20.3 % (36.0-48.0); HEMOGLOBIN. 6.8 g/dL (12.0-16.0)
[2020-10-15] MEDS: SODIUM CHLORIDE 0.9% 1,000 ML IV SCH (13:28)
[2020-10-15] MEDS ORDERED: CEFTRIAXONE 1 G PREMIX 50 ML IV SCH (13:30)
[2020-10-15] MEDS: INSULIN GLARGINE UD 100 UNITS/ML SYR SUBCUT SCH (13:47)
[2020-10-15] MEDS ORDERED: CEFTRIAXONE 1,000 MG in DEXTROSE 5% WATER 50 ML IV SCH ×2 (14:30→20:00)
[2020-10-15 17:51] LABS: UCG SCREEN NEGATIVE
[2020-10-15] MEDS ORDERED: ONDANSETRON HCL 4MG/2ML INJ IV PRN (18:15)
[2020-10-15] MEDS ORDERED: ALPRAZOLAM 0.5 MG TABLET PO NR (18:15)
[2020-10-15] MEDS ORDERED: ATORVASTATIN CALCIUM 10MG TABLET PO SCH (21:00)
[2020-10-16] VITALS: BP 114/65
[2020-10-16] MEDS: SODIUM CHLORIDE 0.9% 1,000 ML IV SCH (03:09)
[2020-10-16 04:00] VITALS: BP 121/66
[2020-10-16] MEDS: BLOOD SUGAR DIAGNOSTIC STRIP TEST SCH ×2 (06:16→12:20)
[2020-10-16 07:01] LABS: BASOPHILS % 0.4 % (0.0-2.0); EOSINOPHILS % 3.1 % (0.0-5.0); HEMATOCRIT. 23.2 % (36.0-48.0); LYMPHOCYTES % 18.7 % (20.0-50.0); MEAN CORPUSCULAR HEMOGLOBIN 29.5 pg (28.0-32.0); MEAN CORPUSCULAR VOLUME 85.8 fL (81.0-99.0); MEAN PLATELET VOLUME 9.5 fl (7.4-10.4); MONOCYTES % 4.9 % (2.0-8.0); NEUTROPHILS % 72.9 % (40.0-76.0); PLATELET 239 x1000/uL (130-400); RED CELL DISTRIBUTION WIDTH 14.6 % (11.6-14.6)
[2020-10-16] MEDS: OMEPRAZOLE 20MG CAPSULE EXTENDED RELEASE PO SCH (07:14)
[2020-10-16] MEDS: SUCRALFATE 1 G/10 ML UDC PO SCH ×2 (07:14→12:37)
[2020-10-16 07:20] LABS: PHOSPHORUS 3.4 mg/dL (2.5-4.9)
[2020-10-16] MEDS: INSULIN LISPRO 100 UNITS/ML SUBCUT SCH ×2 (07:50→12:39)
[2020-10-16 10:42] VITALS: BP 138/85
[2020-10-16] MEDS: ALPRAZOLAM 0.5 MG TABLET PO SCH (10:54)
[2020-10-16] MEDS: AMLODIPINE 5MG TABLET PO SCH (10:54)
[2020-10-16] MEDS: DOCUSATE SODIUM 100MG CAPSULE PO SCH (10:54)
[2020-10-16] MEDS: CLONIDINE 0.2MG TABLET PO SCH (10:55)
[2020-10-16] MEDS: FERROUS SULFATE 325MG TABLET PO SCH ×2 (10:55→12:37)
[2020-10-16] MEDS: METOPROLOL TARTRATE 25MG TABLET PO SCH (10:55)
[2020-10-16] MEDS: INSULIN GLARGINE UD 100 UNITS/ML SYR SUBCUT SCH (10:56)
[2020-10-16 16:00] VITALS: BP 144/71
[2020-10-16 16:07] VITALS: BP 144/71
== END 2020-10-16 17:40 | disposition home or self-care (01) | DRG 811 ==
LOC: ER 17:31 → 6WST 21:23 → EDBEDREQ 21:50 → ENRESERV 23:24 → 6WST 10-15 02:15
PROVIDERS: ADMIT Internal Medicine; ATTEND Internal Medicine
PROC: 30233N1 Transfusion of Nonautologous Red Blood Cells into Peripheral Vein, Percutaneous Approach (ICD-10-PCS; principal; 2020-10-14)
DX: D62 Acute posthemorrhagic anemia (principal); N17.0 Acute kidney failure with tubular necrosis; E44.0 Moderate protein-calorie malnutrition; E87.1 Hypo-osmolality and hyponatremia; N39.0 Urinary tract infection, site not specified; N18.4 Chronic kidney disease, stage 4 (severe); D25.9 Leiomyoma of uterus, unspecified; N92.0 Excessive and frequent menstruation with regular cycle; B96.89 Other specified bacterial agents as the cause of diseases classified elsewhere; E11.43 Type 2 diabetes mellitus with diabetic autonomic (poly)neuropathy; E78.5 Hyperlipidemia, unspecified; E86.9 Volume depletion, unspecified; E05.90 Thyrotoxicosis, unspecified without thyrotoxic crisis or storm; F41.9 Anxiety disorder, unspecified; I95.9 Hypotension, unspecified; E87.5 Hyperkalemia; I12.9 Hypertensive chronic kidney disease with stage 1 through stage 4 chronic kidney disease, or unspecified chronic kidney disease; J45.909 Unspecified asthma, uncomplicated; K31.84 Gastroparesis; Z88.8 Allergy status to other drugs, medicaments and biological substances; Z79.899 Other long term (current) drug therapy; Z79.4 Long term (current) use of insulin; Z82.49 Family history of ischemic heart disease and other diseases of the circulatory system; Z88.6 Allergy status to analgesic agent; Z83.3 Family history of diabetes mellitus; Z90.49 Acquired absence of other specified parts of digestive tract; K29.70 Gastritis, unspecified, without bleeding; K20.90 Esophagitis, unspecified without bleeding
CPT/HCPCS: 36415; 76770; 80048; 80053; 81003; 81025; 82962; 83036; 83735; 84100; 85025; 86850; 86900; 86920; 87077; 87186; 93005; 99291; J0696; J1815; J2060; J7030; J7060; P9016

== ENCOUNTER 2021-01-11 12:09 | Emergency (ER) | payer MEDICARE, MEDICAID ==
[~2021-01-11] VITALS: Ht 165.1 cm; Wt 70.0 kg
[~2021-01-11 12:09] MED LIST changes: +HYDR-4350 PO
[2021-01-11] MEDS ORDERED: SODIUM CHLORIDE 0.9% 1,000 ML IV ONE (12:45)
[2021-01-11 15:06] LABS: BASOPHILS % 0.4 % (0.0-2.0); EOSINOPHILS % 0.5 % (0.0-5.0); HEMATOCRIT. 23.9 % (36.0-48.0); HEMOGLOBIN. 7.8 g/dL (12.0-16.0); LYMPHOCYTES % 9.7 % (20.0-50.0); MEAN CORPUSCULAR VOLUME 83.4 fL (81.0-99.0); MEAN PLATELET VOLUME 9.5 fl (7.4-10.4); MONOCYTES % 3.6 % (2.0-8.0); NEUTROPHILS % 85.8 % (40.0-76.0); PLATELET 225 x1000/uL (130-400); RED BLOOD CELL COUNT 2.87 mill/uL (4.2-5.4); RED CELL DISTRIBUTION WIDTH 13.5 % (11.6-14.6)
[2021-01-11 15:13] LABS: CHLORIDE 108 mEq/L (98-107)
[2021-01-11 15:25] LABS: B-HCG QUANTITATIVE < 1 mIU/mL (<3)
[2021-01-11 15:29] LABS: HCG SCREEN NEGATIVE
[2021-01-11] MEDS ORDERED: ACETAMINOPHEN 325MG TABLET PO NR (15:30)
[2021-01-11] MEDS ORDERED: MORPHINE SULFATE 4 MG/ML CPJ (NOT FOR IM USE) IV ONE ×2 (15:45→21:30)
[2021-01-11 20:30] LABS: CLARITY URINE TURBID (CLEAR); COLOR URINE RED (YELLOW); KETONES URINE NEGATIVE (NEGATIVE); LEUKOCYTE ESTERASE URINE 1+ (NEGATIVE); NITRITE URINE NEGATIVE (NEGATIVE); OCCULT BLOOD URINE 3+ (NEGATIVE); PH URINE 6.5 (4.5-8.0); PROTEIN URINE 4+ (NEGATIVE); SPECIFIC GRAVITY URINE 1.022 (1.005-1.030); UROBILINOGEN URINE 0.2 E.U./dL (0.2-1.0)
[2021-01-11] MEDS ORDERED: LORAZEPAM 1MG TABLET PO ONE (20:30)
[2021-01-11 20:46] LABS: *AMPHETAMINES SCREEN URINE NEGATIVE (NEGATIVE); *BARBITURATES SCREEN URINE NEGATIVE (NEGATIVE); PHENCYCLIDINE URINE SCREEN NEGATIVE (NEGATIVE)
[2021-01-11 20:47] LABS: *COCAINE SCREEN URINE NEGATIVE (NEGATIVE); METHADONE URINE SCREEN NEGATIVE (NEGATIVE)
[2021-01-11 20:51] LABS: *BENZODIAZEPINES SCREEN URINE PRESUMTIVE POSITIVE (NEGATIVE); CANNABINOID URINE SCREEN PRESUMTIVE POSITIVE (NEGATIVE); OPIATES URINE SCREEN PRESUMTIVE POSITIVE (NEGATIVE)
[2021-01-11] MEDS ORDERED: ONDANSETRON HCL 4MG/2ML INJ IV ONE (21:30)
[2021-01-11 21:45] VITALS: BP 146/79
== END 2021-01-11 18:27 | disposition short-term general hospital (02) ==
LOC: ER 12:09 → CANBEDREQ 01-12 07:57
DX: D64.9 Anemia, unspecified (principal); D25.9 Leiomyoma of uterus, unspecified; E11.65 Type 2 diabetes mellitus with hyperglycemia; F19.90 Other psychoactive substance use, unspecified, uncomplicated; F12.10 Cannabis abuse, uncomplicated; I10 Essential (primary) hypertension; J45.909 Unspecified asthma, uncomplicated; Z79.899 Other long term (current) drug therapy; Z88.8 Allergy status to other drugs, medicaments and biological substances; Z98.890 Other specified postprocedural states
CPT/HCPCS: 36415; 76830; 76856; 80053; 80305; 81003; 82962; 84702; 84703; 85025; 86850; 86900; 86901; 86920; 93005; 96361; 96374; 96375; 96376; 99285; J2270; J2405; J7030; J7040; P9016

== ENCOUNTER 2021-02-28 10:10 | Emergency (ER) | payer MEDICARE, MEDICAID ==
[~2021-02-28] VITALS: Ht 167.6 cm; Wt 74.0 kg
[2021-02-28] MEDS ORDERED: ONDANSETRON HCL 4MG/2ML INJ IV STA ×2 (10:21→16:41)
[2021-02-28] MEDS ORDERED: MORPHINE SULFATE 4 MG/ML CPJ (NOT FOR IM USE) IV STA ×2 (10:21→16:41)
[2021-02-28] MEDS ORDERED: SODIUM CHLORIDE 0.9% 1,000 ML IV ONE (10:30)
[2021-02-28 11:09] LABS: BASOPHILS % 0.4 % (0.0-2.0); EOSINOPHILS % 1.7 % (0.0-5.0); HEMATOCRIT. 36.8 % (36.0-48.0); HEMOGLOBIN. 12.8 g/dL (12.0-16.0); LYMPHOCYTES % 12.8 % (20.0-50.0); MEAN CORPUSCULAR HEMOGLOBIN 29.3 pg (28.0-32.0); MEAN CORPUSCULAR VOLUME 84.2 fL (81.0-99.0); MEAN PLATELET VOLUME 8.2 fl (7.4-10.4); MONOCYTES % 1.9 % (2.0-8.0); NEUTROPHILS % 83.2 % (40.0-76.0); PLATELET 332 x1000/uL (130-400); RED BLOOD CELL COUNT 4.37 mill/uL (4.2-5.4); RED CELL DISTRIBUTION WIDTH 13.4 % (11.6-14.6)
[2021-02-28 11:15] LABS: CHLORIDE 111 mEq/L (98-107)
[2021-02-28 11:17] LABS: HCG SCREEN NEGATIVE
[2021-02-28 11:24] LABS: PROTHROMBIN TIME 10.8 sec (9.6-11.0)
[2021-02-28] MEDS ORDERED: ONDANSETRON HCL 4MG/2ML INJ IV ONE (12:00)
[2021-02-28] MEDS ORDERED: METOCLOPRAMIDE HCL 10MG/2ML VIAL IV ONE (13:00)
[2021-02-28] MEDS ORDERED: MORPHINE SULFATE 4 MG/ML CPJ (NOT FOR IM USE) IV ONE (13:00)
[2021-02-28] MEDS ORDERED: HYDRALAZINE 20MG/ML VIAL IV ONE ×2 (14:45→16:45)
[2021-02-28 18:14] VITALS: BP 167/71
== END 2021-02-28 17:02 | disposition short-term general hospital (02) ==
LOC: ER 10:17
DX: R10.84 Generalized abdominal pain (principal); R11.2 Nausea with vomiting, unspecified; E11.9 Type 2 diabetes mellitus without complications; I10 Essential (primary) hypertension; J45.909 Unspecified asthma, uncomplicated; F12.10 Cannabis abuse, uncomplicated; E05.90 Thyrotoxicosis, unspecified without thyrotoxic crisis or storm; Z98.890 Other specified postprocedural states; Z88.6 Allergy status to analgesic agent; Z79.4 Long term (current) use of insulin
CPT/HCPCS: 36415; 74176; 80053; 83690; 84703; 85025; 85610; 96361; 96374; 96375; 96376; 99285; J0360; J2270; J2405; J2765; J7030

== ENCOUNTER 2021-09-08 12:18 | Emergency (ER) | payer MEDICARE, MEDICAID ==
[~2021-09-08] VITALS: Ht 165.1 cm; Wt 140.0 kg
[2021-09-08 12:54] LABS: BASOPHILS % 0.6 % (0.0-2.0); EOSINOPHILS % 0.7 % (0.0-5.0); HEMATOCRIT. 32.2 % (36.0-48.0); HEMOGLOBIN. 10.9 g/dL (12.0-16.0); LYMPHOCYTES % 18.8 % (20.0-50.0); MEAN CORPUSCULAR HEMOGLOBIN 28.2 pg (28.0-32.0); MEAN CORPUSCULAR VOLUME 83.1 fL (81.0-99.0); MEAN PLATELET VOLUME 8.6 fl (7.4-10.4); MONOCYTES % 2.3 % (2.0-8.0); NEUTROPHILS % 77.6 % (40.0-76.0); PLATELET 249 x1000/uL (130-400); RED BLOOD CELL COUNT 3.87 mill/uL (4.2-5.4); RED CELL DISTRIBUTION WIDTH 13.4 % (11.6-14.6)
[2021-09-08] MEDS ORDERED: METOCLOPRAMIDE HCL 10MG/2ML VIAL IV STA (12:54)
[2021-09-08] MEDS ORDERED: MORPHINE SULFATE 4 MG/ML CPJ (NOT FOR IM USE) IV STA (12:54)
[2021-09-08] MEDS ORDERED: SODIUM CHLORIDE 0.9% 2,000 ML IV ONE (13:00)
[2021-09-08] MEDS ORDERED: CLONIDINE 0.2MG TABLET PO ONE (13:00)
[2021-09-08 13:01] LABS: CHLORIDE 112 mEq/L (98-107)
[2021-09-08 13:12] LABS: HCG SCREEN INDETERMINATE
[2021-09-08 13:13] LABS: BETA HYDROXYBUTYRATE 0.6 mMol/L (0.0-0.3)
[2021-09-08] MEDS ORDERED: MORPHINE SULFATE 2 MG/ML CPJ (NOT FOR IM USE) IV NR ×2 (13:30→18:30)
[2021-09-08 14:13] LABS: CLARITY URINE CLEAR (CLEAR); COLOR URINE YELLOW (YELLOW); KETONES URINE NEGATIVE (NEGATIVE); LEUKOCYTE ESTERASE URINE NEGATIVE (NEGATIVE); NITRITE URINE NEGATIVE (NEGATIVE); OCCULT BLOOD URINE TRACE (NEGATIVE); PROTEIN URINE 3+ (NEGATIVE); SPECIFIC GRAVITY URINE 1.016 (1.005-1.030); UROBILINOGEN URINE 0.2 E.U./dL (0.2-1.0)
[2021-09-08] MEDS ORDERED: HYDRALAZINE 20MG/ML VIAL IV ONE ×2 (15:00→18:45)
[2021-09-08] MEDS ORDERED: HYDROMORPHONE HCL/PF 2MG/ML CPJ IV ONE (15:00)
[2021-09-08] MEDS ORDERED: ONDANSETRON HCL 4MG/2ML INJ IV ONE (15:45)
[2021-09-08] MEDS ORDERED: SODIUM CHLORIDE 0.9% 1,000 ML IV ONE (16:00)
[2021-09-08] MEDS ORDERED: HALOPERIDOL LACTATE 5MG/ML VIAL IM ONE (17:45)
[2021-09-08] MEDS ORDERED: MORPHINE SULFATE 4 MG/ML CPJ (NOT FOR IM USE) IV ONE (17:45)
[2021-09-08] MEDS ORDERED: DIPHENHYDRAMINE 50MG/ML VIAL IV ONE (18:45)
[2021-09-08] MEDS ORDERED: MIDAZOLAM HCL 2 MG/2 ML VIAL IV ONE (18:45)
[2021-09-08 20:37] VITALS: BP 156/82
== END 2021-09-08 20:37 | disposition short-term general hospital (02) ==
LOC: ER 12:18
DX: R10.9 Unspecified abdominal pain (principal); R11.0 Nausea; E11.43 Type 2 diabetes mellitus with diabetic autonomic (poly)neuropathy; K31.84 Gastroparesis; Z88.6 Allergy status to analgesic agent; Z20.822 Contact with and (suspected) exposure to COVID-19
CPT/HCPCS: 36415; 71045; 80053; 81003; 82010; 82962; 83605; 83690; 83880; 84484; 84702; 84703; 85025; 87426; 93005; 96361; 96372; 96374; 96375; 99285; J0360; J1170; J1200; J1630; J2250; J2270; J2405; J2765; J7030

== ENCOUNTER 2021-09-20 08:34 | Emergency (ER) | payer MEDICAID, MEDICARE ==
[~2021-09-20] VITALS: Ht 165.1 cm; Wt 64.0 kg
[2021-09-20 08:40] VITALS: BP 171/89
== END 2021-09-20 10:29 | disposition left against medical advice (07) ==
LOC: ER 08:34
DX: I49.9 Cardiac arrhythmia, unspecified (principal); Z53.21 Procedure and treatment not carried out due to patient leaving prior to being seen by health care provider
CPT/HCPCS: 82962; 93005

== ENCOUNTER 2022-02-19 08:11 | Emergency (ER) | payer MEDICARE, MEDICAID ==
[~2022-02-19] VITALS: Ht 167.6 cm; Wt 68.0 kg
[2022-02-19] MEDS ORDERED: CLONIDINE (08:15)
[2022-02-19] MEDS ORDERED: MORPHINE SULFATE 4 MG/ML CPJ (NOT FOR IM USE) IV STA (08:41)
[2022-02-19] MEDS ORDERED: ONDANSETRON HCL 4MG/2ML INJ IV STA (08:41)
[2022-02-19] MEDS ORDERED: SODIUM CHLORIDE 0.9% 1,000 ML IV ONE ×2 (08:45→12:30)
[2022-02-19 09:08] LABS: BASOPHILS % 0.4 % (0.0-2.0); EOSINOPHILS % 0.7 % (0.0-5.0); HEMOGLOBIN. 10.3 g/dL (12.0-16.0); LYMPHOCYTES % 11.8 % (20.0-50.0); MEAN CORPUSCULAR HEMOGLOBIN 27.4 pg (28.0-32.0); MEAN PLATELET VOLUME 7.9 fl (7.4-10.4); MONOCYTES % 3.1 % (2.0-8.0); PLATELET 263 x1000/uL (130-400); RED BLOOD CELL COUNT 3.78 mill/uL (4.2-5.4); RED CELL DISTRIBUTION WIDTH 13.9 % (11.6-14.6)
[2022-02-19 09:16] LABS: CHLORIDE 113 mEq/L (98-107)
[2022-02-19] MEDS ORDERED: LORAZEPAM 2MG/ML CPJ IV ONE (10:00)
[2022-02-19] MEDS ORDERED: DIPHENHYDRAMINE 50MG/ML VIAL IV ONE (10:00)
[2022-02-19] MEDS ORDERED: HALOPERIDOL LACTATE 5MG/ML VIAL IM ONE (10:00)
[2022-02-19] MEDS ORDERED: KETOROLAC 30MG/ML VIAL IV ONE (12:30)
[2022-02-19 12:48] VITALS: BP 189/98
== END 2022-02-19 13:20 | disposition short-term general hospital (02) ==
LOC: ER 08:14 → CANBEDREQ 22:34
DX: N17.9 Acute kidney failure, unspecified (principal); R11.2 Nausea with vomiting, unspecified; E11.9 Type 2 diabetes mellitus without complications; I10 Essential (primary) hypertension; F12.10 Cannabis abuse, uncomplicated; Z79.899 Other long term (current) drug therapy
CPT/HCPCS: 36415; 80053; 83690; 85025; 93005; 96361; 96372; 96374; 96375; 99284; J1200; J1630; J1885; J2060; J2270; J2405; J7030

== ENCOUNTER 2022-06-15 21:21 | Inpatient (IN) | payer MEDICARE, MEDICAID ==
[~2022-06-15] VITALS: Ht 165.1 cm; Wt 68.0 kg
[~2022-06-15 21:21] MED LIST changes: +CLONIDINE; +LEVO250T43 MT; -LEVO250T58 MT; -OMEP20TA2 PO; +OMEP20TA23 PO
[2022-06-15] MEDS ORDERED: ONDANSETRON 4MG ODT PO STA (21:37)
[2022-06-15] MEDS ORDERED: MAGNESIUM/ALUMINUM HYDROXIDE/SIMETHICONE 30ML UDC PO STA (21:37)
[2022-06-15 22:57] LABS: HEMATOCRIT. 30.2 % (36.0-48.0); HEMOGLOBIN. 10.2 g/dL (12.0-16.0); MEAN CORPUSCULAR HEMOGLOBIN 27.2 pg (28.0-32.0); MEAN CORPUSCULAR VOLUME 80.6 fL (81.0-99.0); MEAN PLATELET VOLUME 8.2 fl (7.4-10.4); PLATELET 237 x1000/uL (130-400); RED BLOOD CELL COUNT 3.74 mill/uL (4.2-5.4); RED CELL DISTRIBUTION WIDTH 13.8 % (11.6-14.6)
[2022-06-15 23:04] LABS: CHLORIDE 107 mEq/L (98-107)
[2022-06-15 23:08] LABS: HCG SCREEN NEGATIVE
[2022-06-15 23:12] LABS: ETHANOL BLOOD < 10 mg/dL
[2022-06-15 23:13] LABS: PLATELET ESTIMATE NORMAL
[2022-06-15] MEDS ORDERED: MAGNESIUM/ALUMINUM HYDROXIDE/SIMETHICONE 30ML UDC PO NR (23:30)
[2022-06-15] MEDS ORDERED: ONDANSETRON 4MG ODT PO NR (23:30)
[2022-06-15] MEDS ORDERED: SODIUM CHLORIDE 0.9% 1,000 ML IV ONE (23:45)
[2022-06-15] MEDS ORDERED: HALOPERIDOL LACTATE 5MG/ML VIAL IM ONE (23:45)
[2022-06-16] MEDS ORDERED: MORPHINE SULFATE 2 MG/ML CPJ (NOT FOR IM USE) IV ONE (01:00)
[2022-06-16] MEDS ORDERED: LORAZEPAM 0.5MG TABLET PO ONE (04:15)
[2022-06-16] MEDS ORDERED: ACETAMINOPHEN 325MG TABLET PO ONE (04:15)
[2022-06-16] MEDS ORDERED: HYDRALAZINE 20MG/ML VIAL IV PRN ×2 (08:00→08:15)
[2022-06-16] MEDS: CLONIDINE 0.2MG TABLET PO SCH ×2 (08:36→21:25)
[2022-06-16] MEDS ORDERED: CLONIDINE 0.2MG TABLET PO SCH (09:00)
[2022-06-16 09:17] LABS: CLARITY URINE CLEAR (CLEAR); COLOR URINE YELLOW (YELLOW); KETONES URINE TRACE (NEGATIVE); LEUKOCYTE ESTERASE URINE NEGATIVE (NEGATIVE); NITRITE URINE NEGATIVE (NEGATIVE); OCCULT BLOOD URINE 1+ (NEGATIVE); PH URINE 5.5 (4.5-8.0); PROTEIN URINE 3+ (NEGATIVE); SPECIFIC GRAVITY URINE 1.015 (1.005-1.030); UROBILINOGEN URINE 0.2 E.U./dL (0.2-1.0)
[2022-06-16 09:38] LABS: *AMPHETAMINES SCREEN URINE NEGATIVE (NEGATIVE); *BARBITURATES SCREEN URINE NEGATIVE (NEGATIVE); *BENZODIAZEPINES SCREEN URINE NEGATIVE (NEGATIVE); *COCAINE SCREEN URINE NEGATIVE (NEGATIVE); CANNABINOID URINE SCREEN NEGATIVE (NEGATIVE); METHADONE URINE SCREEN NEGATIVE (NEGATIVE); OPIATES URINE SCREEN NEGATIVE (NEGATIVE); PHENCYCLIDINE URINE SCREEN NEGATIVE (NEGATIVE)
[2022-06-16] MEDS: AMLODIPINE 10MG TABLET PO SCH (11:20)
[2022-06-16 12:00] VITALS: BP 183/90
[2022-06-16] MEDS ORDERED: ACETAMINOPHEN 325MG TABLET PO PRN (12:00)
[2022-06-16] MEDS ORDERED: DEXTROSE 50% WATER 50ML SYRINGE IV PRN (12:00)
[2022-06-16] MEDS ORDERED: ONDANSETRON HCL 4MG/2ML INJ IV PRN (12:00)
[2022-06-16] MEDS: BLOOD SUGAR DIAGNOSTIC STRIP TEST SCH ×3 (12:40→21:02)
[2022-06-16] MEDS: ENOXAPARIN 30MG/0.3ML SYR SUBCUT SCH (13:45)
[2022-06-16] MEDS: METOPROLOL TARTRATE 50MG TABLET PO SCH ×2 (13:45→21:25)
[2022-06-16] MEDS: INSULIN LISPRO 100 UNITS/ML SUBCUT SCH ×3 (13:48→21:26)
[2022-06-16 14:00] VITALS: BP 165/78
[2022-06-16 16:00] VITALS: BP 116/67
[2022-06-16 17:22] LABS: CREATINE KINASE 215 IU/L (26-192); CREATINE KINASE MB FRACTION 2.3 ng/mL (0.5-3.6); HDL CHOLESTEROL 44 mg/dL (40-59); LDL CHOLESTEROL 80 mg/dL (5-100)
[2022-06-16] MEDS: CEFTRIAXONE 1,000 MG in DEXTROSE 5% WATER 50 ML IV SCH (18:55)
[2022-06-16] MEDS: ALPRAZOLAM 0.5 MG TABLET PO PRN (18:55)
[2022-06-16 20:00] VITALS: BP 138/71
[2022-06-16] MEDS: HYDRALAZINE HCL 50MG TABLET PO SCH (21:24)
[2022-06-17] VITALS: BP 103/67
[2022-06-17 00:17] LABS: CREATINE KINASE MB FRACTION 2.4 ng/mL (0.5-3.6)
[2022-06-17 04:00] VITALS: BP 121/68
[2022-06-17] MEDS: BLOOD SUGAR DIAGNOSTIC STRIP TEST SCH ×4 (06:30→21:11)
[2022-06-17 08:00] VITALS: BP 181/89
[2022-06-17] MEDS: HYDRALAZINE HCL 50MG TABLET PO SCH ×2 (08:17→21:21)
[2022-06-17] MEDS: METOPROLOL TARTRATE 50MG TABLET PO SCH ×2 (08:24→21:22)
[2022-06-17] MEDS: INSULIN LISPRO 100 UNITS/ML SUBCUT SCH ×4 (08:25→21:23)
[2022-06-17] MEDS: AMLODIPINE 10MG TABLET PO SCH (08:26)
[2022-06-17] MEDS: CLONIDINE 0.2MG TABLET PO SCH ×2 (08:50→21:22)
[2022-06-17] MEDS: INSULIN GLARGINE 100 UNITS/ML SUBCUT SCH (08:51)
[2022-06-17] MEDS: ALPRAZOLAM 0.5 MG TABLET PO PRN ×2 (09:45→22:42)
[2022-06-17 11:40] VITALS: BP 130/82
[2022-06-17] MEDS: ENOXAPARIN 30MG/0.3ML SYR SUBCUT SCH (12:39)
[2022-06-17] MEDS: LACTULOSE 20G/30ML UDC PO SCH ×2 (14:49→21:22)
[2022-06-17] MEDS: CEFTRIAXONE 1,000 MG in DEXTROSE 5% WATER 50 ML IV SCH (15:59)
[2022-06-17 16:00] VITALS: BP 123/70
[2022-06-17 17:00] LABS: BASOPHILS % 0.1 % (0.0-2.0); HEMATOCRIT. 29.7 % (36.0-48.0); HEMOGLOBIN. 9.8 g/dL (12.0-16.0); LYMPHOCYTES % 11.8 % (20.0-50.0); MEAN CORPUSCULAR VOLUME 81.4 fL (81.0-99.0); MEAN PLATELET VOLUME 8.6 fl (7.4-10.4); MONOCYTES % 4.1 % (2.0-8.0); PLATELET 227 x1000/uL (130-400); RED BLOOD CELL COUNT 3.65 mill/uL (4.2-5.4); RED CELL DISTRIBUTION WIDTH 13.5 % (11.6-14.6)
[2022-06-17 20:00] VITALS: BP 138/84
[2022-06-18] VITALS: BP 128/78
[2022-06-18 04:00] VITALS: BP 132/72
[2022-06-18] MEDS: LACTULOSE 20G/30ML UDC PO SCH ×3 (05:24→21:35)
[2022-06-18] MEDS: BLOOD SUGAR DIAGNOSTIC STRIP TEST SCH ×4 (06:40→21:37)
[2022-06-18] MEDS: INSULIN LISPRO 100 UNITS/ML SUBCUT SCH ×4 (06:40→21:00)
[2022-06-18 08:00] VITALS: BP 118/73
[2022-06-18] MEDS: AMLODIPINE 10MG TABLET PO SCH (08:50)
[2022-06-18] MEDS: HYDRALAZINE HCL 50MG TABLET PO SCH ×2 (08:50→21:34)
[2022-06-18] MEDS: CLONIDINE 0.2MG TABLET PO SCH ×2 (08:51→21:34)
[2022-06-18] MEDS: METOPROLOL TARTRATE 50MG TABLET PO SCH ×2 (08:51→21:37)
[2022-06-18] MEDS: INSULIN GLARGINE 100 UNITS/ML SUBCUT SCH (09:01)
[2022-06-18 12:00] VITALS: BP 109/57
[2022-06-18 12:07] LABS: BASOPHILS % 0.2 % (0.0-2.0); EOSINOPHILS % 2.2 % (0.0-5.0); HEMATOCRIT. 27.7 % (36.0-48.0); LYMPHOCYTES % 25.7 % (20.0-50.0); MEAN CORPUSCULAR HEMOGLOBIN 27.1 pg (28.0-32.0); MEAN CORPUSCULAR VOLUME 83.2 fL (81.0-99.0); MEAN PLATELET VOLUME 8.5 fl (7.4-10.4); MONOCYTES % 7.7 % (2.0-8.0); NEUTROPHILS % 64.2 % (40.0-76.0); PLATELET 207 x1000/uL (130-400); RED BLOOD CELL COUNT 3.33 mill/uL (4.2-5.4); RED CELL DISTRIBUTION WIDTH 13.8 % (11.6-14.6)
[2022-06-18] MEDS: ENOXAPARIN 30MG/0.3ML SYR SUBCUT SCH (13:30)
[2022-06-18 16:00] VITALS: BP 104/61
[2022-06-18] MEDS: CEFTRIAXONE 1,000 MG in DEXTROSE 5% WATER 50 ML IV SCH (16:33)
[2022-06-18 20:00] VITALS: BP 116/68
[2022-06-18] MEDS: ALPRAZOLAM 0.5 MG TABLET PO PRN (21:34)
[2022-06-18 22:59] LABS: CREATININE URINE (RAW) 94.9 mg/dl
[2022-06-19] VITALS: BP 108/68
[2022-06-19 04:00] VITALS: BP 103/64
[2022-06-19] MEDS: LACTULOSE 20G/30ML UDC PO SCH ×2 (05:49→13:05)
[2022-06-19 06:44] LABS: BASOPHILS % 0.3 % (0.0-2.0); EOSINOPHILS % 2.9 % (0.0-5.0); HEMOGLOBIN. 8.9 g/dL (12.0-16.0); LYMPHOCYTES % 30.1 % (20.0-50.0); MEAN CORPUSCULAR HEMOGLOBIN 27.7 pg (28.0-32.0); MEAN CORPUSCULAR VOLUME 81.4 fL (81.0-99.0); MEAN PLATELET VOLUME 8.8 fl (7.4-10.4); MONOCYTES % 8.6 % (2.0-8.0); NEUTROPHILS % 58.1 % (40.0-76.0); PLATELET 207 x1000/uL (130-400); RED CELL DISTRIBUTION WIDTH 13.7 % (11.6-14.6)
[2022-06-19] MEDS: BLOOD SUGAR DIAGNOSTIC STRIP TEST SCH ×2 (08:02→11:57)
[2022-06-19] MEDS: INSULIN LISPRO 100 UNITS/ML SUBCUT SCH ×2 (08:02→11:57)
[2022-06-19 08:05] VITALS: BP 117/65
[2022-06-19] MEDS: CLONIDINE 0.2MG TABLET PO SCH (08:24)
[2022-06-19] MEDS: METOPROLOL TARTRATE 50MG TABLET PO SCH (08:24)
[2022-06-19] MEDS: AMLODIPINE 10MG TABLET PO SCH (08:25)
[2022-06-19] MEDS: HYDRALAZINE HCL 50MG TABLET PO SCH (08:25)
[2022-06-19] MEDS: INSULIN GLARGINE 100 UNITS/ML SUBCUT SCH (08:26)
[2022-06-19] MEDS: ALPRAZOLAM 0.5 MG TABLET PO PRN (10:04)
[2022-06-19 12:00] VITALS: BP 110/65
[2022-06-19] MEDS: ENOXAPARIN 30MG/0.3ML SYR SUBCUT SCH (13:05)
[2022-06-19 13:15] VITALS: BP 110/65
== END 2022-06-19 13:36 | disposition home or self-care (01) | DRG 683 ==
LOC: ER 21:21 → 7WST 06-16 04:12 → CANRESERV 06-16 04:51 → ENRESERV 06-16 04:51 → EDBEDREQSVC 06-16 10:23 → ENRESERV 06-16 11:19
PROVIDERS: ADMIT Internal Medicine; ATTEND Internal Medicine
DX: N17.9 Acute kidney failure, unspecified (principal); E87.2 Acidosis; I31.3 Pericardial effusion (noninflammatory); N18.4 Chronic kidney disease, stage 4 (severe); K59.00 Constipation, unspecified; E11.22 Type 2 diabetes mellitus with diabetic chronic kidney disease; E11.65 Type 2 diabetes mellitus with hyperglycemia; I16.0 Hypertensive urgency; I12.9 Hypertensive chronic kidney disease with stage 1 through stage 4 chronic kidney disease, or unspecified chronic kidney disease; N20.0 Calculus of kidney; F12.90 Cannabis use, unspecified, uncomplicated; R80.9 Proteinuria, unspecified; D63.1 Anemia in chronic kidney disease; Z88.3 Allergy status to other anti-infective agents; Z90.49 Acquired absence of other specified parts of digestive tract; Z90.710 Acquired absence of both cervix and uterus; I35.1 Nonrheumatic aortic (valve) insufficiency
CPT/HCPCS: 36415; 71045; 74176; 80048; 80053; 80061; 80305; 80320; 81003; 82550; 82553; 82575; 82962; 83036; 83735; 84484; 84703; 85025; 93005; 93306; 93970; 99291; J0360; J0696; J1630; J1650; J1815; J2270; J2405; J7030; J7060; Q0162; G0480

== ENCOUNTER 2022-07-06 12:35 | Inpatient (IN) | payer MEDICARE, MEDICAID ==
[~2022-07-06] VITALS: Ht 165.1 cm; Wt 80.7 kg
[2022-07-06 14:48] LABS: BASOPHILS % 0.3 % (0.0-2.0); EOSINOPHILS % 3.1 % (0.0-5.0); HEMATOCRIT. 26.3 % (36.0-48.0); HEMOGLOBIN. 8.7 g/dL (12.0-16.0); LYMPHOCYTES % 18.2 % (20.0-50.0); MEAN CORPUSCULAR HEMOGLOBIN 27.3 pg (28.0-32.0); MEAN CORPUSCULAR VOLUME 82.8 fL (81.0-99.0); MONOCYTES % 7.2 % (2.0-8.0); NEUTROPHILS % 71.2 % (40.0-76.0); PLATELET 246 x1000/uL (130-400); RED BLOOD CELL COUNT 3.17 mill/uL (4.2-5.4); RED CELL DISTRIBUTION WIDTH 13.8 % (11.6-14.6)
[2022-07-06 14:59] LABS: CHLORIDE 104 mEq/L (98-107)
[2022-07-06 15:06] LABS: HCG SCREEN NEGATIVE
[2022-07-06] MEDS ORDERED: ALPRAZOLAM 0.5 MG TABLET PO ONE (20:45)
[2022-07-06] MEDS ORDERED: ALPRAZOLAM 0.25 MG TABLET PO NR (20:45)
[2022-07-06] MEDS ORDERED: ACETAMINOPHEN 325MG TABLET PO ONE (20:45)
[2022-07-06] MEDS ORDERED: MORPHINE SULFATE 2 MG/ML CPJ (NOT FOR IM USE) IV PRN (22:45)
[2022-07-06] MEDS ORDERED: ONDANSETRON HCL 4MG/2ML INJ IV PRN (22:45)
[2022-07-06] MEDS ORDERED: BISACODYL 5MG TABLET PO PRN (22:45)
[2022-07-06] MEDS ORDERED: DEXTROSE 50% WATER 50ML SYRINGE IV PRN (22:45)
[2022-07-06] MEDS ORDERED: ACETAMINOPHEN 325MG TABLET PO PRN (22:45)
[2022-07-06] MEDS ORDERED: ZOLPIDEM TARTRATE 5MG TABLET PO PRN (22:45)
[2022-07-06] MEDS: AMLODIPINE 5MG TABLET PO SCH (23:27)
[2022-07-06] MEDS: INSULIN LISPRO 100 UNITS/ML SUBCUT SCH (23:40)
[2022-07-06] MEDS: BLOOD SUGAR DIAGNOSTIC STRIP TEST SCH (23:48)
[2022-07-07 01:45] LABS: CLARITY URINE CLEAR (CLEAR); COLOR URINE YELLOW (YELLOW); KETONES URINE NEGATIVE (NEGATIVE); LEUKOCYTE ESTERASE URINE NEGATIVE (NEGATIVE); NITRITE URINE NEGATIVE (NEGATIVE); OCCULT BLOOD URINE NEGATIVE (NEGATIVE); PROTEIN URINE 3+ (NEGATIVE); SPECIFIC GRAVITY URINE 1.014 (1.005-1.030); UROBILINOGEN URINE 0.2 E.U./dL (0.2-1.0)
[2022-07-07 03:26] VITALS: BP 140/81
[2022-07-07 03:31] VITALS: BP 140/81
[2022-07-07] MEDS: BLOOD SUGAR DIAGNOSTIC STRIP TEST SCH ×4 (05:24→21:34)
[2022-07-07] MEDS: SUCRALFATE 1 G/10 ML UDC PO SCH ×4 (06:22→21:32)
[2022-07-07] MEDS: LORAZEPAM 0.5MG TABLET PO PRN ×2 (06:24→17:07)
[2022-07-07] MEDS: INSULIN LISPRO 100 UNITS/ML SUBCUT SCH ×4 (06:28→21:00)
[2022-07-07 06:55] LABS: BASOPHILS % 0.7 % (0.0-2.0); EOSINOPHILS % 7.4 % (0.0-5.0); HEMATOCRIT. 26.1 % (36.0-48.0); HEMOGLOBIN. 8.5 g/dL (12.0-16.0); LYMPHOCYTES % 31.8 % (20.0-50.0); MEAN CORPUSCULAR HEMOGLOBIN 27.2 pg (28.0-32.0); MEAN CORPUSCULAR VOLUME 83.2 fL (81.0-99.0); MEAN PLATELET VOLUME 7.9 fl (7.4-10.4); MONOCYTES % 9.4 % (2.0-8.0); NEUTROPHILS % 50.7 % (40.0-76.0); PLATELET 238 x1000/uL (130-400); RED BLOOD CELL COUNT 3.14 mill/uL (4.2-5.4); RED CELL DISTRIBUTION WIDTH 13.9 % (11.6-14.6)
[2022-07-07 07:20] LABS: PHOSPHORUS 4.9 mg/dL (2.5-4.9)
[2022-07-07 08:00] VITALS: BP 150/87
[2022-07-07] MEDS: DOCUSATE SODIUM 100MG CAPSULE PO SCH ×2 (08:38→17:07)
[2022-07-07] MEDS: AMLODIPINE 5MG TABLET PO SCH (08:38)
[2022-07-07] MEDS: CLONIDINE 0.2MG TABLET PO SCH ×2 (08:38→17:07)
[2022-07-07] MEDS: INSULIN GLARGINE 100 UNITS/ML SUBCUT SCH (08:47)
[2022-07-07] MEDS: PANTOPRAZOLE SODIUM 40 MG/VIAL IV SCH (10:26)
[2022-07-07 12:00] VITALS: BP 132/74
[2022-07-07] MEDS ORDERED: NA PHOS,M-B/NA PHOS,DI-BA ENEMA 118ML PR NR (14:30)
[2022-07-07 16:00] VITALS: BP 122/65
[2022-07-07] MEDS: LACTULOSE 20G/30ML UDC PO SCH ×2 (17:07→21:32)
[2022-07-07] MEDS: ASPIRIN 81MG TABLET PO SCH (18:23)
[2022-07-07] MEDS: CLOPIDOGREL 75MG TABLET PO SCH (18:23)
[2022-07-07 20:00] VITALS: BP 145/80
[2022-07-07] MEDS ORDERED: ATORVASTATIN CALCIUM 40MG TABLET PO SCH (21:00)
[2022-07-07] MEDS ORDERED: LACTULOSE 20G/30ML UDC PO SCH (22:00)
[2022-07-08] VITALS: BP 146/76
[2022-07-08 04:00] VITALS: BP 150/73
[2022-07-08] MEDS: LACTULOSE 20G/30ML UDC PO SCH ×3 (06:04→21:42)
[2022-07-08] MEDS: BLOOD SUGAR DIAGNOSTIC STRIP TEST SCH ×4 (06:10→21:22)
[2022-07-08] MEDS: SUCRALFATE 1 G/10 ML UDC PO SCH ×4 (06:10→21:14)
[2022-07-08] MEDS: INSULIN LISPRO 100 UNITS/ML SUBCUT SCH ×4 (06:10→21:17)
[2022-07-08 06:48] LABS: BASOPHILS % 0.5 % (0.0-2.0); EOSINOPHILS % 6.8 % (0.0-5.0); HEMATOCRIT. 27.3 % (36.0-48.0); HEMOGLOBIN. 8.9 g/dL (12.0-16.0); LYMPHOCYTES % 32.3 % (20.0-50.0); MEAN CORPUSCULAR HEMOGLOBIN 27.4 pg (28.0-32.0); MEAN CORPUSCULAR VOLUME 83.8 fL (81.0-99.0); MEAN PLATELET VOLUME 8.1 fl (7.4-10.4); MONOCYTES % 7.2 % (2.0-8.0); NEUTROPHILS % 53.2 % (40.0-76.0); PLATELET 268 x1000/uL (130-400); RED BLOOD CELL COUNT 3.26 mill/uL (4.2-5.4); RED CELL DISTRIBUTION WIDTH 13.3 % (11.6-14.6)
[2022-07-08 07:01] LABS: PHOSPHORUS 4.3 mg/dL (2.5-4.9)
[2022-07-08 08:00] VITALS: BP 151/84
[2022-07-08] MEDS: ASPIRIN 81MG TABLET PO SCH (08:38)
[2022-07-08] MEDS: BISACODYL 5MG TABLET PO SCH (08:38)
[2022-07-08] MEDS: DOCUSATE SODIUM 100MG CAPSULE PO SCH ×2 (08:38→17:11)
[2022-07-08] MEDS: CLONIDINE 0.2MG TABLET PO SCH ×2 (08:39→17:10)
[2022-07-08] MEDS: CLOPIDOGREL 75MG TABLET PO SCH (08:39)
[2022-07-08] MEDS: AMLODIPINE 5MG TABLET PO SCH (08:40)
[2022-07-08] MEDS: PANTOPRAZOLE SODIUM 40 MG/VIAL IV SCH (08:40)
[2022-07-08] MEDS: INSULIN GLARGINE 100 UNITS/ML SUBCUT SCH (08:41)
[2022-07-08 12:00] VITALS: BP 152/85
[2022-07-08] MEDS ORDERED: LIP40 PO (13:31)
[2022-07-08] MEDS ORDERED: CLOP75TA15 PO (13:31)
[2022-07-08] MEDS ORDERED: ASPI-1160 PO (13:31)
[2022-07-08 13:50] VITALS: BP 152/85
[2022-07-08 16:00] VITALS: BP 140/87
[2022-07-08] MEDS: ATORVASTATIN CALCIUM 40MG TABLET PO SCH (21:15)
[2022-07-08] MEDS: LORAZEPAM 0.5MG TABLET PO PRN (21:42)
[2022-07-09] VITALS: BP 140/80
[2022-07-09 04:00] VITALS: BP 142/86
[2022-07-09] MEDS: LACTULOSE 20G/30ML UDC PO SCH ×3 (05:54→20:59)
[2022-07-09] MEDS: SUCRALFATE 1 G/10 ML UDC PO SCH ×4 (05:54→20:59)
[2022-07-09 07:03] LABS: BASOPHILS % 0.5 % (0.0-2.0); EOSINOPHILS % 7.7 % (0.0-5.0); HEMATOCRIT. 24.9 % (36.0-48.0); HEMOGLOBIN. 8.3 g/dL (12.0-16.0); LYMPHOCYTES % 26.3 % (20.0-50.0); MEAN CORPUSCULAR HEMOGLOBIN 27.8 pg (28.0-32.0); MONOCYTES % 7.6 % (2.0-8.0); NEUTROPHILS % 57.9 % (40.0-76.0); PLATELET 255 x1000/uL (130-400); RED BLOOD CELL COUNT 2.99 mill/uL (4.2-5.4); RED CELL DISTRIBUTION WIDTH 13.4 % (11.6-14.6)
[2022-07-09] MEDS: BLOOD SUGAR DIAGNOSTIC STRIP TEST SCH ×4 (07:10→20:59)
[2022-07-09] MEDS: INSULIN LISPRO 100 UNITS/ML SUBCUT SCH ×4 (07:40→21:00)
[2022-07-09 08:00] VITALS: BP 162/82
[2022-07-09] MEDS: CLONIDINE 0.1MG TABLET PO PRN ×2 (08:44→08:49)
[2022-07-09] MEDS: ASPIRIN 81MG TABLET PO SCH (08:44)
[2022-07-09] MEDS: DOCUSATE SODIUM 100MG CAPSULE PO SCH ×2 (08:44→17:28)
[2022-07-09] MEDS: PANTOPRAZOLE SODIUM 40 MG/VIAL IV SCH (08:45)
[2022-07-09] MEDS: CLOPIDOGREL 75MG TABLET PO SCH (08:45)
[2022-07-09] MEDS: AMLODIPINE 5MG TABLET PO SCH (08:45)
[2022-07-09] MEDS: INSULIN GLARGINE 100 UNITS/ML SUBCUT SCH (08:47)
[2022-07-09] MEDS: BISACODYL 5MG TABLET PO SCH (08:48)
[2022-07-09] MEDS: CLONIDINE 0.2MG TABLET PO SCH ×2 (09:00→17:28)
[2022-07-09 12:00] VITALS: BP 142/75
[2022-07-09 16:00] VITALS: BP 135/80
[2022-07-09 20:00] VITALS: BP 165/82
[2022-07-09] MEDS: ATORVASTATIN CALCIUM 40MG TABLET PO SCH (20:59)
[2022-07-09] MEDS: LORAZEPAM 0.5MG TABLET PO PRN (21:09)
[2022-07-10] VITALS: BP 149/76
[2022-07-10 04:00] VITALS: BP 142/78
[2022-07-10] MEDS: LACTULOSE 20G/30ML UDC PO SCH ×2 (05:21→13:18)
[2022-07-10] MEDS: SUCRALFATE 1 G/10 ML UDC PO SCH ×2 (05:21→12:04)
[2022-07-10] MEDS: BLOOD SUGAR DIAGNOSTIC STRIP TEST SCH ×2 (05:36→12:17)
[2022-07-10] MEDS: INSULIN LISPRO 100 UNITS/ML SUBCUT SCH ×2 (05:37→12:18)
[2022-07-10 08:00] VITALS: BP 123/87
[2022-07-10 08:02] LABS: PHOSPHORUS 3.2 mg/dL (2.5-4.9)
[2022-07-10 08:11] LABS: BASOPHILS % 0.5 % (0.0-2.0); EOSINOPHILS % 7.8 % (0.0-5.0); HEMATOCRIT. 27.8 % (36.0-48.0); HEMOGLOBIN. 9.2 g/dL (12.0-16.0); LYMPHOCYTES % 29.5 % (20.0-50.0); MEAN CORPUSCULAR HEMOGLOBIN 27.1 pg (28.0-32.0); MEAN CORPUSCULAR VOLUME 81.8 fL (81.0-99.0); MONOCYTES % 7.4 % (2.0-8.0); NEUTROPHILS % 54.8 % (40.0-76.0); PLATELET 308 x1000/uL (130-400); RED CELL DISTRIBUTION WIDTH 13.4 % (11.6-14.6)
[2022-07-10] MEDS: BISACODYL 5MG TABLET PO SCH (08:41)
[2022-07-10] MEDS: DOCUSATE SODIUM 100MG CAPSULE PO SCH (08:41)
[2022-07-10] MEDS: CLOPIDOGREL 75MG TABLET PO SCH (08:41)
[2022-07-10] MEDS: AMLODIPINE 5MG TABLET PO SCH (08:42)
[2022-07-10] MEDS: ASPIRIN 81MG TABLET PO SCH (08:42)
[2022-07-10] MEDS: CLONIDINE 0.1MG TABLET PO PRN ×2 (08:42→13:18)
[2022-07-10] MEDS ORDERED: NALOXONE HCL 0.4MG/ML VIAL IV PRN (08:45)
[2022-07-10] MEDS: CLONIDINE 0.2MG TABLET PO SCH (08:49)
[2022-07-10] MEDS: INSULIN GLARGINE 100 UNITS/ML SUBCUT SCH (08:54)
[2022-07-10] MEDS ORDERED: FAMOTIDINE 20MG TABLET PO SCH (09:00)
[2022-07-10] MEDS ORDERED: ACETAMINOPHEN 325MG TABLET PO PRN (10:45)
[2022-07-10 12:00] VITALS: BP 170/93
[2022-07-10 16:00] VITALS: BP 159/84
[2022-07-10 16:08] VITALS: BP 159/84
== END 2022-07-10 17:09 | disposition home health service (06) | DRG 65 ==
LOC: ER 12:35 → ENRESERV 21:19 → EDBEDREQSVC 22:00 → 8WST 23:36
PROVIDERS: ADMIT Internal Medicine; ATTEND Internal Medicine
DX: I63.9 Cerebral infarction, unspecified (principal); E87.2 Acidosis; N17.9 Acute kidney failure, unspecified; N18.4 Chronic kidney disease, stage 4 (severe); E11.22 Type 2 diabetes mellitus with diabetic chronic kidney disease; E11.65 Type 2 diabetes mellitus with hyperglycemia; H55.00 Unspecified nystagmus; I12.9 Hypertensive chronic kidney disease with stage 1 through stage 4 chronic kidney disease, or unspecified chronic kidney disease; K59.00 Constipation, unspecified; N20.0 Calculus of kidney; E78.5 Hyperlipidemia, unspecified; R26.9 Unspecified abnormalities of gait and mobility; D63.1 Anemia in chronic kidney disease; Z90.49 Acquired absence of other specified parts of digestive tract; Z90.710 Acquired absence of both cervix and uterus; Z88.3 Allergy status to other anti-infective agents; Z79.02 Long term (current) use of antithrombotics/antiplatelets; Z79.82 Long term (current) use of aspirin; Z79.84 Long term (current) use of oral hypoglycemic drugs
CPT/HCPCS: 36415; 70544; 70547; 70551; 71045; 72141; 80048; 80053; 80061; 81003; 82962; 83036; 83605; 83880; 84100; 84443; 84484; 84703; 85025; 93005; 93308; 93970; 97162; 97166; 97530; 97535; 99285; C9113; J1815; J2405

== ENCOUNTER 2022-12-09 11:58 | Inpatient (IN) | payer MEDICARE, MEDICAID ==
[~2022-12-09] VITALS: Ht 165.1 cm; Wt 80.3 kg
[~2022-12-09 11:58] MED LIST changes: +ASPI-1160 PO; +CLOP75TA15 PO; -LEVO250T43 MT; +LIP40 PO
[2022-12-09] MEDS ORDERED: HALOPERIDOL LACTATE 5MG/ML VIAL IM ONE (12:30)
[2022-12-09] MEDS ORDERED: METOCLOPRAMIDE HCL 10MG/2ML VIAL IV ONE (13:30)
[2022-12-09 14:16] LABS: HEMATOCRIT. 26.6 % (36.0-48.0); HEMOGLOBIN. 8.9 g/dL (12.0-16.0); MEAN CORPUSCULAR VOLUME 80.5 fL (81.0-99.0); MEAN PLATELET VOLUME 7.7 fl (7.4-10.4); PLATELET 261 x1000/uL (130-400); RED CELL DISTRIBUTION WIDTH 14.5 % (11.6-14.6)
[2022-12-09 14:17] LABS: CHLORIDE 109 mEq/L (98-107)
[2022-12-09 15:05] LABS: PLATELET ESTIMATE NORMAL
[2022-12-10] MEDS ORDERED: HYDRALAZINE 20MG/ML VIAL IV PRN (00:15)
[2022-12-10] MEDS ORDERED: MORPHINE SULFATE 4 MG/ML CPJ (NOT FOR IM USE) IV PRN (00:15)
[2022-12-10] MEDS ORDERED: NALOXONE HCL 0.4MG/ML VIAL IV PRN (00:30)
[2022-12-10 00:38] LABS: CLARITY URINE CLOUDY (CLEAR); COLOR URINE YELLOW (YELLOW); KETONES URINE 1+ (NEGATIVE); LEUKOCYTE ESTERASE URINE 1+ (NEGATIVE); NITRITE URINE NEGATIVE (NEGATIVE); OCCULT BLOOD URINE 1+ (NEGATIVE); PROTEIN URINE 4+ (NEGATIVE); SPECIFIC GRAVITY URINE 1.015 (1.005-1.030); UROBILINOGEN URINE 0.2 E.U./dL (0.2-1.0)
[2022-12-10] MEDS: CLONIDINE 0.2MG TABLET PO PRN ×3 (00:42→17:18)
[2022-12-10] MEDS: ONDANSETRON HCL 4MG/2ML INJ IV PRN ×3 (00:42→17:19)
[2022-12-10] MEDS ORDERED: METOCLOPRAMIDE HCL 10MG/2ML VIAL IV PRN (02:30)
[2022-12-10] MEDS ORDERED: HYDRALAZINE 10 MG in SODIUM CHLORIDE 0.9% 49.5 ML IV PRN (02:30)
[2022-12-10] MEDS ORDERED: ACETAMINOPHEN 325MG TABLET PO PRN ×2 (02:30→02:45)
[2022-12-10 04:16] VITALS: BP 201/91
[2022-12-10 08:00] VITALS: BP 162/68
[2022-12-10 12:00] VITALS: BP 177/86
[2022-12-10 20:00] VITALS: BP 156/88
[2022-12-10] MEDS: METOCLOPRAMIDE HCL 5MG TABLET PO SCH (20:36)
[2022-12-10] MEDS ORDERED: LACTULOSE 20G/30ML UDC PO SCH (21:00)
[2022-12-11] VITALS (8 sets, daily range): BP systolic 145–176; BP diastolic 68–83
[2022-12-11] MEDS: CLONIDINE 0.2MG TABLET PO PRN ×3 (00:13→15:54)
[2022-12-11] MEDS ORDERED: DEXTROSE 50% WATER 50ML SYRINGE IV PRN (01:45)
[2022-12-11] MEDS: BLOOD SUGAR DIAGNOSTIC STRIP TEST SCH ×3 (02:05→11:30)
[2022-12-11] MEDS: INSULIN LISPRO 100 UNITS/ML SUBCUT SCH ×3 (02:08→11:32)
[2022-12-11] MEDS: METOCLOPRAMIDE HCL 5MG TABLET PO SCH ×3 (05:59→11:37)
[2022-12-11 06:28] LABS: FERRITIN 115 ng/mL (10-291)
[2022-12-11 07:30] LABS: TOTAL IRON BINDING CAPACITY 295 ug/dL (250-450)
[2022-12-11 08:44] LABS: VITAMIN B12 SERUM 1083 pg/mL (211-911)
[2022-12-11] MEDS ORDERED: PANTOPRAZOLE SODIUM 40 MG/VIAL IV SCH (09:00)
[2022-12-11] MEDS ORDERED: CEFTRIAXONE 1 G PREMIX 50 ML IV SCH (10:15)
[2022-12-11] MEDS ORDERED: CEFTRIAXONE 1,000 MG in DEXTROSE 5% WATER 50 ML IV SCH (12:00)
[2022-12-11 12:34] LABS: BASOPHILS % 0.3 % (0.0-2.0); EOSINOPHILS % 0.9 % (0.0-5.0); HEMATOCRIT. 22.8 % (36.0-48.0); HEMOGLOBIN. 7.6 g/dL (12.0-16.0); LYMPHOCYTES % 9.4 % (20.0-50.0); MEAN CORPUSCULAR HEMOGLOBIN 26.9 pg (28.0-32.0); MEAN PLATELET VOLUME 7.2 fl (7.4-10.4); MONOCYTES % 4.2 % (2.0-8.0); NEUTROPHILS % 85.2 % (40.0-76.0); PLATELET 215 x1000/uL (130-400); RED BLOOD CELL COUNT 2.81 mill/uL (4.2-5.4); RED CELL DISTRIBUTION WIDTH 14.4 % (11.6-14.6)
[2022-12-11] MEDS ORDERED: CEPH500C2 MT (15:42)
[2022-12-11] MEDS ORDERED: FLUTICASONE PROPIONATE 50MCG/SPRAY BOTTLE BOTHNSTRLS SCH (16:00)
== END 2022-12-11 16:55 | disposition home or self-care (01) | DRG 74 ==
LOC: ER 12:16 → MICUSO 18:59 → EDBEDREQSVC 19:01 → EDBEDREQ 19:01 → 4WST 12-10 02:08 → 8WST 12-10 04:06
PROVIDERS: ADMIT Internal Medicine; ATTEND Internal Medicine
DX: E11.43 Type 2 diabetes mellitus with diabetic autonomic (poly)neuropathy (principal); N17.9 Acute kidney failure, unspecified; I13.2 Hypertensive heart and chronic kidney disease with heart failure and with stage 5 chronic kidney disease, or end stage renal disease; N39.0 Urinary tract infection, site not specified; N18.5 Chronic kidney disease, stage 5; E11.22 Type 2 diabetes mellitus with diabetic chronic kidney disease; Z20.822 Contact with and (suspected) exposure to COVID-19; E78.5 Hyperlipidemia, unspecified; K21.9 Gastro-esophageal reflux disease without esophagitis; K59.00 Constipation, unspecified; I50.9 Heart failure, unspecified; D63.1 Anemia in chronic kidney disease; K31.84 Gastroparesis; F12.90 Cannabis use, unspecified, uncomplicated; D50.9 Iron deficiency anemia, unspecified; R06.6 Hiccough; Z79.4 Long term (current) use of insulin; Z90.710 Acquired absence of both cervix and uterus; Z90.49 Acquired absence of other specified parts of digestive tract
CPT/HCPCS: 36415; 71045; 74176; 76700; 80048; 80053; 81003; 82607; 82728; 82746; 82962; 83036; 83540; 83550; 84484; 85025; 85044; 87426; 93005; 99285; C1893; C9113; J0360; J0696; J1630; J1815; J2270; J2405; J2765; J7060; J8597

== ENCOUNTER 2023-02-28 21:14 | Inpatient (IN) | payer MEDICARE, MEDICAID ==
[~2023-02-28] VITALS: Ht 165.1 cm; Wt 67.6 kg
[~2023-02-28 21:14] MED LIST changes: +CEPH500C2 MT
[2023-02-28] MEDS ORDERED: ONDANSETRON HCL 4MG/2ML INJ IV ONE (22:00)
[2023-02-28 22:22] LABS: BASOPHILS % 0.4 % (0.0-2.0); CHLORIDE 97 mEq/L (98-107); EOSINOPHILS % 1.3 % (0.0-5.0); HEMATOCRIT. 33.3 % (36.0-48.0); HEMOGLOBIN. 10.9 g/dL (12.0-16.0); LYMPHOCYTES % 7.9 % (20.0-50.0); MEAN CORPUSCULAR HEMOGLOBIN 27.3 pg (28.0-32.0); MEAN CORPUSCULAR VOLUME 83.3 fL (81.0-99.0); MONOCYTES % 3.2 % (2.0-8.0); NEUTROPHILS % 87.2 % (40.0-76.0); PLATELET 353 x1000/uL (130-400); RED CELL DISTRIBUTION WIDTH 15.5 % (11.6-14.6)
[2023-02-28 22:33] LABS: ETHANOL BLOOD < 10 mg/dL; PROTHROMBIN TIME 10.3 sec (9.6-11.0)
[2023-02-28] MEDS ORDERED: ONDANSETRON HCL 4MG/2ML INJ IV STA (22:40)
[2023-02-28] MEDS ORDERED: MORPHINE SULFATE 4 MG/ML CPJ (NOT FOR IM USE) IV STA (22:40)
[2023-02-28] MEDS ORDERED: HYDRALAZINE 20MG/ML VIAL IV ONE (22:45)
[2023-02-28] MEDS ORDERED: PANTOPRAZOLE SODIUM 40 MG/VIAL IV ONE (22:45)
[2023-03-01] VITALS (11 sets, daily range): BP systolic 127–195; BP diastolic 67–100
[2023-03-01] MEDS ORDERED: MORPHINE SULFATE 4 MG/ML CPJ (NOT FOR IM USE) IV STA (01:00)
[2023-03-01] MEDS ORDERED: ONDANSETRON HCL 4MG/2ML INJ IV STA (01:00)
[2023-03-01] MEDS ORDERED: LORAZEPAM 2MG/ML CPJ IV PRN ×2 (02:30→08:14)
[2023-03-01] MEDS ORDERED: ONDANSETRON HCL 4MG/2ML INJ IV PRN ×2 (05:45→16:00)
[2023-03-01] MEDS ORDERED: DEXT 5%/0.9% NACL 1,000 ML IV SCH (05:45)
[2023-03-01] MEDS ORDERED: DEXTROSE 50% WATER 50ML SYRINGE IV PRN (06:00)
[2023-03-01] MEDS: HYDRALAZINE 20MG/ML VIAL IV PRN ×2 (06:11→09:01)
[2023-03-01] MEDS: BLOOD SUGAR DIAGNOSTIC STRIP TEST SCH ×4 (07:02→20:56)
[2023-03-01 10:38] LABS: HEMATOCRIT. 31.5 % (36.0-48.0); HEMOGLOBIN. 10.2 g/dL (12.0-16.0); MEAN CORPUSCULAR HEMOGLOBIN 27.3 pg (28.0-32.0); MEAN CORPUSCULAR VOLUME 84.4 fL (81.0-99.0); MEAN PLATELET VOLUME 7.9 fl (7.4-10.4); PLATELET 338 x1000/uL (130-400); RED BLOOD CELL COUNT 3.73 mill/uL (4.2-5.4); RED CELL DISTRIBUTION WIDTH 15.2 % (11.6-14.6)
[2023-03-01] MEDS: INSULIN LISPRO 100 UNITS/ML SUBCUT SCH ×3 (12:25→21:05)
[2023-03-01 12:26] LABS: FOLIC ACID (FOLATE) SERUM 12.6 ng/mL (>5.38)
[2023-03-01 14:54] LABS: HEPATITIS B SURFACE ANTIGEN NEGATIVE
[2023-03-01] MEDS: CLONIDINE 0.2MG TABLET PO SCH ×2 (17:00→17:28)
[2023-03-01] MEDS: METOCLOPRAMIDE HCL 10MG/2ML VIAL IV SCH ×2 (17:27→23:53)
[2023-03-01] MEDS: SUCRALFATE 1 G/10 ML UDC PO SCH ×2 (17:27→21:02)
[2023-03-01] MEDS: AMLODIPINE 5MG TABLET PO SCH (17:28)
[2023-03-01] MEDS: ATORVASTATIN CALCIUM 40MG TABLET PO SCH (21:03)
[2023-03-01] MEDS: METOPROLOL TARTRATE 25MG TABLET PO SCH (21:03)
[2023-03-01 21:05] LABS: PLATELET ESTIMATE NORMAL
[2023-03-02] VITALS (14 sets, daily range): BP systolic 99–139; BP diastolic 45–78
[2023-03-02] MEDS: METOCLOPRAMIDE HCL 10MG/2ML VIAL IV SCH ×3 (06:11→17:44)
[2023-03-02] MEDS: BLOOD SUGAR DIAGNOSTIC STRIP TEST SCH ×4 (06:35→21:00)
[2023-03-02 06:37] LABS: BASOPHILS % 0.4 % (0.0-2.0); EOSINOPHILS % 0.7 % (0.0-5.0); HEMATOCRIT. 26.7 % (36.0-48.0); HEMOGLOBIN. 8.8 g/dL (12.0-16.0); LYMPHOCYTES % 14.1 % (20.0-50.0); MEAN CORPUSCULAR HEMOGLOBIN 27.6 pg (28.0-32.0); MEAN CORPUSCULAR VOLUME 83.8 fL (81.0-99.0); NEUTROPHILS % 78.8 % (40.0-76.0); PLATELET 280 x1000/uL (130-400); RED BLOOD CELL COUNT 3.18 mill/uL (4.2-5.4); RED CELL DISTRIBUTION WIDTH 15.9 % (11.6-14.6)
[2023-03-02] MEDS: SUCRALFATE 1 G/10 ML UDC PO SCH ×4 (06:40→20:22)
[2023-03-02 07:17] LABS: PROTHROMBIN TIME 11.1 sec (9.6-11.0)
[2023-03-02] MEDS: INSULIN LISPRO 100 UNITS/ML SUBCUT SCH ×4 (08:00→21:00)
[2023-03-02] MEDS: METOPROLOL TARTRATE 25MG TABLET PO SCH ×2 (09:00→20:21)
[2023-03-02] MEDS: AMLODIPINE 5MG TABLET PO SCH (09:00)
[2023-03-02] MEDS: CLONIDINE 0.2MG TABLET PO SCH ×2 (09:00→17:45)
[2023-03-02] MEDS ORDERED: PANTOPRAZOLE SODIUM 40 MG/VIAL IV NR (10:00)
[2023-03-02] MEDS ORDERED: LACTULOSE 20G/30ML UDC PO NR (10:00)
[2023-03-02] MEDS ORDERED: PANTOPRAZOLE SODIUM 40 MG/VIAL IV SCH (17:00)
[2023-03-02] MEDS: ATORVASTATIN CALCIUM 40MG TABLET PO SCH (20:22)
== END 2023-03-02 20:30 | disposition home health service (06) | DRG 368 ==
LOC: ER 21:14 → MICUSO 03-01 00:48 → 3WST 03-01 03:00
PROVIDERS: ADMIT Internal Medicine; ATTEND Internal Medicine
DX: K20.91 Esophagitis, unspecified with bleeding (principal); N18.6 End stage renal disease; I13.2 Hypertensive heart and chronic kidney disease with heart failure and with stage 5 chronic kidney disease, or end stage renal disease; E11.43 Type 2 diabetes mellitus with diabetic autonomic (poly)neuropathy; I16.0 Hypertensive urgency; E11.22 Type 2 diabetes mellitus with diabetic chronic kidney disease; K31.84 Gastroparesis; D63.1 Anemia in chronic kidney disease; I50.9 Heart failure, unspecified; D25.9 Leiomyoma of uterus, unspecified; K21.9 Gastro-esophageal reflux disease without esophagitis; F41.9 Anxiety disorder, unspecified; D50.9 Iron deficiency anemia, unspecified; E78.5 Hyperlipidemia, unspecified; F32.A Depression, unspecified; Z79.02 Long term (current) use of antithrombotics/antiplatelets; Z99.2 Dependence on renal dialysis; Z79.4 Long term (current) use of insulin; Z79.82 Long term (current) use of aspirin; Z79.899 Other long term (current) drug therapy; Z90.49 Acquired absence of other specified parts of digestive tract; Z91.199 Patient's noncompliance with other medical treatment and regimen due to unspecified reason
CPT/HCPCS: 36415; 71045; 74018; 74176; 80048; 80053; 80320; 82607; 82728; 82746; 82962; 83540; 83550; 84484; 85025; 85044; 86705; 86709; 86803; 87340; 90935; 93005; 99285; C9113; J0360; J1815; J2060; J2270; J2405; J2765; J7042; G0480

== ENCOUNTER 2023-06-04 16:34 | Emergency (ER) | payer MEDICARE, MEDICAID ==
[~2023-06-04] VITALS: Ht 165.1 cm; Wt 68.0 kg
[2023-06-04 16:48] VITALS: O2SAT 100
[2023-06-05] MEDS ORDERED: AMOXICILLIN/POTASSIUM CLAVULANATE 875/125MG TAB PO ONE (03:15)
[2023-06-05] MEDS ORDERED: LORAZEPAM 1MG TABLET PO ONE (03:15)
[2023-06-05] MEDS ORDERED: DIPHENHYDRAMINE 50MG CAPSULE PO ONE (03:15)
[2023-06-05] MEDS ORDERED: CLONIDINE 0.2MG TABLET PO ONE (03:30)
[2023-06-05] MEDS ORDERED: CETI10CA2 MT (04:14)
[2023-06-05] MEDS ORDERED: AMOX1TAB16 MT (04:14)
[2023-06-05] MEDS ORDERED: LORAZEPAM 1MG TABLET PO NR (04:45)
[2023-06-05] MEDS ORDERED: LORAZEPAM 2MG/ML CPJ IM PRN (05:00)
[2023-06-05 05:30] VITALS: BP 183/92; PULSE 72; RESP 14; TEMP 98.2
== END 2023-06-05 06:00 | disposition home or self-care (01) ==
LOC: ER 16:34
DX: J32.9 Chronic sinusitis, unspecified (principal); I12.0 Hypertensive chronic kidney disease with stage 5 chronic kidney disease or end stage renal disease; E11.22 Type 2 diabetes mellitus with diabetic chronic kidney disease; N18.6 End stage renal disease; Z99.2 Dependence on renal dialysis; F41.9 Anxiety disorder, unspecified; J45.909 Unspecified asthma, uncomplicated
CPT/HCPCS: 99285; 71045; 93005; 82962; Q0163; J2060

== ENCOUNTER 2023-06-08 15:39 | Emergency (ER) | payer MEDICARE, MEDICAID ==
[~2023-06-08] VITALS: Ht 165.1 cm; Wt 68.0 kg
[~2023-06-08 15:39] MED LIST changes: +AMOX1TAB16 MT; +CETI10CA2 MT
[2023-06-08 16:02] VITALS: BP 151/79; PULSE 81; RESP 16; TEMP 98.9; O2SAT 100
[2023-06-08] MEDS ORDERED: ACETAMINOPHEN WITH CODEINE 300/30MG TABLET PO ONE (16:15)
[2023-06-08] MEDS ORDERED: TOPUD PO (17:32)
== END 2023-06-08 17:57 | disposition home or self-care (01) ==
LOC: ER 15:39
DX: M79.10 Myalgia, unspecified site (principal); I12.0 Hypertensive chronic kidney disease with stage 5 chronic kidney disease or end stage renal disease; E11.22 Type 2 diabetes mellitus with diabetic chronic kidney disease; N18.6 End stage renal disease; J45.909 Unspecified asthma, uncomplicated; F41.9 Anxiety disorder, unspecified; Z99.2 Dependence on renal dialysis; Z79.899 Other long term (current) drug therapy
CPT/HCPCS: 73560; 99284

== ENCOUNTER 2023-10-29 09:27 | Emergency (ER) | payer MEDICARE, MEDICAID ==
[~2023-10-29] VITALS: Ht 165.1 cm; Wt 56.7 kg
[~2023-10-29 09:27] MED LIST changes: +TOPUD PO
[2023-10-29] MEDS ORDERED: METHOCARBAMOL 500MG TABLET PO NR (10:30)
[2023-10-29] MEDS ORDERED: ACETAMINOPHEN 325MG TABLET PO NR (10:30)
[2023-10-29 10:50] LABS: BASOPHILS % 0.5 % (0.0-2.0); EOSINOPHILS % 6.7 % (0.0-5.0); HEMATOCRIT. 36.9 % (36.0-48.0); HEMOGLOBIN. 11.8 g/dL (12.0-16.0); LYMPHOCYTES % 18.5 % (20.0-50.0); MEAN CORPUSCULAR HEMOGLOBIN 28.7 pg (28.0-32.0); MEAN CORPUSCULAR VOLUME 89.6 fL (81.0-99.0); MEAN PLATELET VOLUME 8.1 fl (7.4-10.4); MONOCYTES % 5.1 % (2.0-8.0); NEUTROPHILS % 69.2 % (40.0-76.0); PLATELET 243 x1000/uL (130-400); RED BLOOD CELL COUNT 4.11 mill/uL (4.2-5.4); RED CELL DISTRIBUTION WIDTH 15.2 % (11.6-14.6); WHITE BLOOD COUNT 4.2 x1000/uL (4.5-11.0)
[2023-10-29 11:04] LABS: ALANINE AMINOTRANSFERASE 8 IU/L (10-49); ALBUMIN 4.1 g/dL (3.2-4.8); ASPARTATE AMINOTRANSFERASE 15 IU/L (<34); BILIRUBIN TOTAL 0.3 mg/dL (0.1-1.0); CARBON DIOXIDE 33 mEq/L (21-32); CHLORIDE 100 mEq/L (98-107); GLUCOSE 144 mg/dL (70-105); POTASSIUM 5.6 mEq/L (3.5-5.1); PROTEIN TOTAL 7.7 g/dL (6.0-8.3); SODIUM 138 mEq/L (136-145); TROPONIN I HIGH SENSITIVITY 8 ng/L (3.0-34); UREA NITROGEN BLOOD 42 mg/dL (9-23)
[2023-10-29 11:44] LABS: HCG SCREEN NEGATIVE
[2023-10-29] MEDS ORDERED: HYDROCODONE/ACETAMINOPHEN 5/325MG TABLET PO ONE (11:45)
[2023-10-29] MEDS ORDERED: INSULIN REGULAR (HUMULIN R) 300UNITS/3ML VIAL IV NR (12:00)
[2023-10-29] MEDS ORDERED: SODIUM POLYSTYRENE SULFONATE 15 G/60 ML BOT PO NR (12:00)
[2023-10-29] MEDS ORDERED: FUROSEMIDE 40MG/4ML VIAL IV NR (12:00)
[2023-10-29] MEDS ORDERED: DEXTROSE 50% WATER 50ML SYRINGE IV NR (12:00)
[2023-10-29] MEDS ORDERED: SODIUM BICARBONATE 8.4% 1 MEQ/ML 50ML SYR IV NR (12:00)
[2023-10-29] MEDS ORDERED: CALCIUM GLUCONATE 1,000 MG in DEXT 5% WATER 100 ML IV NR (12:00)
[2023-10-29 13:57] VITALS: TEMP 98.4
[2023-10-29 14:00] VITALS: PULSE 81; RESP 11; O2SAT 100
[2023-10-29] MEDS: ALBUTEROL (0.083%) 2.5MG/3ML NEB HHN SCH ×3 (14:00→15:00)
[2023-10-29] MEDS ORDERED: HYDROCODONE/ACETAMINOPHEN 5/325MG TABLET PO SCH (14:15)
[2023-10-29 14:30] VITALS: PULSE 87; RESP 15; O2SAT 100
[2023-10-29 14:34] LABS: HEPATITIS A AB IGM NEGATIVE (Negative); HEPATITIS B CORE AB IGM NEGATIVE (Negative); HEPATITIS B SURFACE ANTIGEN NEGATIVE (Negative); HEPATITIS C AB NON REACTIVE (Neg) (Negative)
[2023-10-29 15:00] VITALS: PULSE 92; RESP 16; O2SAT 100
[2023-10-29 15:15] LABS: CALCIUM 8.8 mg/dL (8.7-10.4); POTASSIUM 5.5 mEq/L (3.5-5.1)
[2023-10-29 15:17] LABS: CREATININE 8.2 mg/dL (0.6-1.0)
[2023-10-29 15:50] VITALS: BP 177/84; PULSE 98; RESP 16
== END 2023-10-29 17:08 | disposition left against medical advice (07) ==
LOC: ER 09:27 → EDBEDREQ 13:41 → EDBEDREQTM 13:41 → CANBEDREQ 17:04 → ER 17:08
DX: I24.9 Acute ischemic heart disease, unspecified (principal); I10 Essential (primary) hypertension; E87.5 Hyperkalemia; I12.0 Hypertensive chronic kidney disease with stage 5 chronic kidney disease or end stage renal disease; E11.22 Type 2 diabetes mellitus with diabetic chronic kidney disease; N18.6 End stage renal disease; J45.909 Unspecified asthma, uncomplicated; Z88.6 Allergy status to analgesic agent; Z79.899 Other long term (current) drug therapy
CPT/HCPCS: 80053; 80048; 81025; 84703; 83880; 85025; 85379; 87340; 84484; 36415; 86705; 86709; 71045; 94640; 93005; 96365; 96375; 99291; J0610; J1940; J1815; J3490; J7060

== ENCOUNTER 2024-11-02 17:16 | Emergency (ER) | payer MEDICARE, MEDICAID ==
[~2024-11-02] VITALS: Ht 165.1 cm; Wt 75.0 kg
[~2024-11-02 17:16] MED LIST changes: -AMLO5TAB4 PO; +AMLO5TAB5 PO; -AMOX1TAB16 MT; -CEPH500C2 MT; +CINA30 PO; -CLONIDINE; +DOCU-405 PO; -DOCU100T MT; -DOCU250C69 PO; -FERR325T6 MT; -HYDR-4350 PO; -LIP40 PO; +SEVE800T8 MT; -SIMV-43 MT; -SUCR1ORA PO; -TOPUD PO
[2024-11-02 17:24] VITALS: O2SAT 99
[2024-11-02 21:21] LABS: CLARITY URINE TURBID (CLEAR); COLOR URINE YELLOW (YELLOW); GLUCOSE URINE 1+ (NEGATIVE); KETONES URINE NEGATIVE (NEGATIVE); LEUKOCYTE ESTERASE URINE 2+ (NEGATIVE); NITRITE URINE NEGATIVE (NEGATIVE); OCCULT BLOOD URINE NEGATIVE (NEGATIVE); PH URINE 8.5 (4.5-8.0); PROTEIN URINE 3+ (NEGATIVE); SPECIFIC GRAVITY URINE 1.012 (1.005-1.030); UROBILINOGEN URINE 0.2 E.U./dL (0.2-1.0)
[2024-11-02 21:34] LABS: BACTERIA URINE 3+; RBC URINE 0-2 /hpf (0-2); SQUAMOUS EPITHELIAL CELL URINE 1+ /lpf (RARE/1+); WBC URINE 25-50 /hpf (0-2)
[2024-11-02] MEDS: HYDROCODONE/ACETAMINOPHEN 5/325MG TABLET PO ONE (21:49)
[2024-11-02] MEDS ORDERED: SULF1TAB48 MT (22:06)
[2024-11-02] MEDS ORDERED: CYCL10TA21 MT (22:06)
[2024-11-02 22:19] VITALS: BP 138/91; PULSE 99; RESP 16; TEMP 37.05852; O2SAT 99
== END 2024-11-02 22:20 | disposition home or self-care (01) ==
LOC: ER 17:16
DX: S09.90XA Unspecified injury of head, initial encounter (principal); M54.50 Low back pain, unspecified; E11.22 Type 2 diabetes mellitus with diabetic chronic kidney disease; N39.0 Urinary tract infection, site not specified; N18.6 End stage renal disease; I12.0 Hypertensive chronic kidney disease with stage 5 chronic kidney disease or end stage renal disease; Z79.02 Long term (current) use of antithrombotics/antiplatelets; Z79.82 Long term (current) use of aspirin; Z79.899 Other long term (current) drug therapy; Z86.73 Personal history of transient ischemic attack (TIA), and cerebral infarction without residual deficits; Z87.440 Personal history of urinary (tract) infections; Z88.6 Allergy status to analgesic agent; V49.3XXA Car occupant (driver) (passenger) injured in unspecified nontraffic accident, initial encounter; Y93.89 Activity, other specified; Y92.89 Other specified places as the place of occurrence of the external cause; Y99.8 Other external cause status
CPT/HCPCS: 81003; 99283

== ENCOUNTER 2025-02-11 17:40 | Emergency (ER) | payer MEDICARE, MEDICAID ==
[~2025-02-11] VITALS: Ht 165.1 cm; Wt 68.0 kg
[~2025-02-11 17:40] MED LIST changes: -ALPR2TAB2 PO; +AMLO10TA4 MT; +CYCL10TA21 MT; +SULF1TAB48 MT
[2025-02-11 17:45] VITALS: BP 158/82; PULSE 104; RESP 16; TEMP 36.8; O2SAT 99
[2025-02-11] MEDS: CYCLOBENZAPRINE 10MG TABLET PO ONE (20:04)
[2025-02-11] MEDS ORDERED: LIDO700A30 TP (20:10)
[2025-02-11] MEDS ORDERED: CYCL10TA21 MT (20:10)
== END 2025-02-11 20:18 | disposition home or self-care (01) ==
LOC: ER 17:40
DX: S39.82XA Other specified injuries of lower back, initial encounter (principal); E11.22 Type 2 diabetes mellitus with diabetic chronic kidney disease; I12.0 Hypertensive chronic kidney disease with stage 5 chronic kidney disease or end stage renal disease; M47.816 Spondylosis without myelopathy or radiculopathy, lumbar region; M51.360 Other intervertebral disc degeneration, lumbar region with discogenic back pain only; N18.6 End stage renal disease; Z79.02 Long term (current) use of antithrombotics/antiplatelets; Z79.82 Long term (current) use of aspirin; Z79.899 Other long term (current) drug therapy; Z86.73 Personal history of transient ischemic attack (TIA), and cerebral infarction without residual deficits; Z88.6 Allergy status to analgesic agent; Z99.2 Dependence on renal dialysis; X58.XXXA Exposure to other specified factors, initial encounter; Y93.89 Activity, other specified; Y92.410 Unspecified street and highway as the place of occurrence of the external cause; Y99.8 Other external cause status
CPT/HCPCS: 72131; 72170; 99284